=== PATIENT | male | born 1970 | race Caucasian/White ===

== ENCOUNTER 2018-02-21 22:51 | Emergency (ER) | payer OTHER ==
[~2018-02-21] VITALS: Ht 175.3 cm; Wt 79.4 kg
[~2018-02-21 22:51] MED LIST: Augmentin 875-1 EACH PO; FAMO20 PO; HYDACE5 PO; Norco 5-325 Ta1 EACH PO; Seroquel50 MG PO; Zofran Odt4 MG SL
== END 2018-02-22 00:23 | disposition home or self-care (01) ==
LOC: ER 22:51
DX: S00.412A Abrasion of left ear, initial encounter (principal); W22.8XXA Striking against or struck by other objects, initial encounter; Z88.8 Allergy status to other drugs, medicaments and biological substances; Z79.899 Other long term (current) drug therapy; F17.200 Nicotine dependence, unspecified, uncomplicated
CPT/HCPCS: 90471; 90714; 99282

== ENCOUNTER → 2021-10-09 | Outpatient (CLI) | payer OTHER ==
[2021-10-10 14:57] LABS: Creatinine Urine 47.6 mg/dL (27.00-270.00); Protein, Urine Quantitative 5.5 mg/dL (0.0-11.9)
[2021-10-10 15:00] LABS: Microalbumin, Urine Quant. 6.65 mg/L (0.000-20.000)
== END | disposition home or self-care (01) ==
LOC: LAB SHORT 05:30 → LAB FUT 10-02 11:30
PROVIDERS: Internal Medicine Nephrology
DX: N18.2 Chronic kidney disease, stage 2 (mild) (principal); D63.1 Anemia in chronic kidney disease; N25.81 Secondary hyperparathyroidism of renal origin; E55.9 Vitamin D deficiency, unspecified; E78.00 Pure hypercholesterolemia, unspecified; R76.9 Abnormal immunological finding in serum, unspecified; R94.5 Abnormal results of liver function studies; R94.6 Abnormal results of thyroid function studies
CPT/HCPCS: 81050; 82043; 82570; 84156

== ENCOUNTER 2022-06-26 13:49 | Emergency (ER) | payer OTHER ==
[~2022-06-26] VITALS: Ht 177.8 cm; Wt 79.4 kg
[2022-06-26 14:31] LABS: BASOPHILS ABSOLUTE AUTO 0.05 K/mm3 (0.00-0.23); BASOPHILS PERCENT AUTO 1 % (0-2); EOSINOPHILS ABSOLUTE AUTO 0.14 K/mm3 (0.00-0.68); EOSINOPHILS PERCENT AUTO 3 % (0-6); Hematocrit 42.7 % (37.0-53.0); Hemoglobin 15.1 g/dL (13.5-17.5); IMMATURE GRAN ABSOLUTE AUTO 0.01 K/mm3 (0.00-0.10); IMMATURE GRAN PERCENT AUTO 0 % (0-1); LYMPHOCYTES ABSOLUTE AUTO 1.19 K/mm3 (0.84-5.20); LYMPHOCYTES PERCENT AUTO 22 % (21-46); MONOCYTES ABSOLUTE AUTO 0.65 K/mm3 (0.16-1.47); MONOCYTES PERCENT AUTO 12 % (4-13); Mean Corpuscular HGB Conc 35.4 g/dL (31.5-36.5); Mean Corpuscular Volume 102 fL (80-100); Mean Platelet Volume 9.8 fL (9.1-12.4); NEUTROPHILS ABSOLUTE AUTO 3.49 K/mm3 (1.96-9.15); NEUTROPHILS PERCENT AUTO 63 % (41-73); Platelet Count 151 K/mm3 (150-400); RDW Coefficient Variation 12.7 % (11.7-14.2); RDW Standard Deviation 47.7 fL (35.1-46.3); Red Blood Cell Count 4.19 M/mm3 (4.30-5.90); White Blood Cell Count 5.53 K/mm3 (4.00-11.30)
[2022-06-26 14:57] LABS: Albumin, Blood 3.1 g/dL (3.4-5.0); Albumin/Globulin Ratio 0.7 (0.8-1.8); Bilirubin, Total 0.7 mg/dL (0.1-1.0); Calcium, Blood 8.8 mg/dL (8.5-10.1); Creatinine, Blood 0.75 mg/dL (0.60-1.20); Globulin, Blood 4.2 g/dL (2.2-4.0); Potassium, Blood 3.1 mmol/L (3.5-5.5); Total Protein, Blood 7.3 g/dL (6.4-8.2)
[2022-06-26 17:51] LABS: Magnesium, Blood 1.5 mg/dL (1.6-2.4)
== END 2022-06-26 20:20 | disposition home or self-care (01) ==
LOC: ER 13:49
PROVIDERS: Emergency Medicine; Physician Assistant
DX: K85.20 Alcohol induced acute pancreatitis without necrosis or infection (principal); F10.229 Alcohol dependence with intoxication, unspecified; Y90.8 Blood alcohol level of 240 mg/100 ml or more; E83.42 Hypomagnesemia; E87.6 Hypokalemia; I10 Essential (primary) hypertension; Z88.8 Allergy status to other drugs, medicaments and biological substances; Z79.899 Other long term (current) drug therapy; F17.200 Nicotine dependence, unspecified, uncomplicated
CPT/HCPCS: 36415; 74018; 80053; 83690; 83735; 85025; 93005; 93010; A9270; G0480; J3475; J7120

== ENCOUNTER 2022-10-02 20:59 | Inpatient (IN) | payer BC ==
[~2022-10-02] VITALS: Ht 177.8 cm; Wt 71.2 kg
[2022-10-02 22:40] LABS: Magnesium, Blood 1.7 mg/dL (1.6-2.4)
[2022-10-02 23:02] LABS: Alanine Aminotransfer (ALT/SGP 72 U/L (12-78); Albumin, Blood 2.8 g/dL (3.4-5.0); Albumin/Globulin Ratio 0.7 (0.8-1.8); Alk Phos 175 U/L (50-136); Anion Gap 15 mmol/L (6-16); Aspartate Aminotrans (AST/SGOT 183 U/L (12-37); Bilirubin, Total 2.5 mg/dL (0.1-1.0); Blood Urea Nitrogen 9 mg/dL (8-24); Bun/Creatinine Ratio 14.4 (12.0-20.0); CO2, Blood 31 mmol/L (21-32); Chloride, Blood 72 mmol/L (98-108); Creatinine, Blood 0.63 mg/dL (0.60-1.20); Globulin, Blood 4.2 g/dL (2.2-4.0); Glomerular Filtration Rate 114 (60-); Glucose, Blood 103 mg/dL (70-99); Potassium, Blood 2.7 mmol/L (3.5-5.5); Sodium, Blood 118 mmol/L (136-145)
[2022-10-02 23:41] LABS: Ethanol (Alcohol), Blood, Med <3 mg/dL
--- NOTE | 2022-10-03 02:44 | NUR ---
NO UO SINCE ARRIVAL TO ER, BLADDER SCAN SHOWED 401CC, ATTEMPTED TO STRAIGHT CATH AND ULTIMATLEY WAS SUCCESSFUL WITH A 14FR COUDE, 425CC OF DARK, TEA COLORED URINE OBTAINED, SPECIMEN SENT TO LAB ORDERED
[2022-10-03 02:54] LABS: International Normalized Ratio 1.02; Prothrombin Time Results 10.7 Sec (9.7-11.5)
[2022-10-03 03:02] LABS: EOSINOPHILS ABSOLUTE AUTO 0.01 K/mm3 (0.00-0.68); EOSINOPHILS PERCENT AUTO 0 % (0-6); Mean Corpuscular Volume 98 fL (80-100)
[2022-10-03 03:10] LABS: BASOPHILS ABSOLUTE AUTO 0.04 K/mm3 (0.00-0.23); BASOPHILS PERCENT AUTO 0 % (0-2); Hematocrit 35.7 % (37.0-53.0); IMMATURE GRAN ABSOLUTE AUTO 0.13 K/mm3 (0.00-0.10); IMMATURE GRAN PERCENT AUTO 1 % (0-1); LYMPHOCYTES ABSOLUTE AUTO 0.38 K/mm3 (0.84-5.20); LYMPHOCYTES PERCENT AUTO 3 % (21-46); MONOCYTES ABSOLUTE AUTO 0.93 K/mm3 (0.16-1.47); MONOCYTES PERCENT AUTO 8 % (4-13); NEUTROPHILS ABSOLUTE AUTO 9.58 K/mm3 (1.96-9.15); NEUTROPHILS PERCENT AUTO 87 % (41-73); NRBC ABSOLUTE 0.16 K/mm3 (0.00-0.02); NRBC Auto 1.4 /100 WBC (0.0-0.2); RDW Coefficient Variation 12.1 % (11.7-14.2); Red Blood Cell Count 3.63 M/mm3 (4.30-5.90)
[2022-10-03 03:23] LABS: Bun/Creatinine Ratio 16.7 (12.0-20.0); Creatinine, Blood 0.6 mg/dL (0.60-1.20); Potassium, Blood 2.8 mmol/L (3.5-5.5)
[2022-10-03 03:24] LABS: Mean Platelet Volume 10.6 fL (9.1-12.4)
[2022-10-03 03:29] LABS: Platelet Count 178 K/mm3 (150-400)
[2022-10-03 03:30] LABS: White Blood Cell Count 11.41 K/mm3 (4.00-11.30)
--- NOTE | 2022-10-03 06:34 | NUR ---
END OF SHIFT SUMMARY CIWA'S , RECIEVED 7MG ATIVAN TOTAL SINCE ARRIVAL TO ER, INITIALLY RETAINING URINE BUT NOW INCONTINENT AND CONDOM CATH PLACED, , NPO, SR/ST, RA, NS AT 150ML/HR INFUSING, RECIEVED THIAMINE, FOLIC ACID, MAG AND K REPLACEMENT, BED ALARM ON AND SEIZURE PRECAUTIONS IN PLACE
--- NOTE | 2022-10-03 10:34 | NUR ---
ASSUMPTION OF CARE ASSUMED CARE OF PT AT 0700, REPORT RECIEVED FROM EKTA GRAHAM. PT SLEEPING AT TIME OF ASSESSMENT AFTER RECIEVING ATIVAN PER ORDER AT AROUND 0530. PT MOANS WHEN ATTEMPTING TO WAKE PT FOR ASSESSMENT. PT NOT OPENING EYES WHEN INSTRUCTED TO. PT PULLS EXTERMITIES AWAY FROM STAFF WHEN STAFF IS MOVING HIS EXTREMITIES. PT BREATHING IS UNLABORED AND EVEN. LUNG SOUNDS CLEAR. PT HR SR/ST RANGING 90-100'S. PT HAS A RASH ON LOWER LEFT BACK THAT GOES TO PT [place]. PT HAS A COONDOM CATH IN PLACE, NO OUTPUT AT THIS TIME. FLUIDS RUNNING PER EMAR AT TIME OF ASSESSMENT.
--- NOTE | 2022-10-03 13:00 | NUR ---
UPDATE AT 1255, THIS RN WAS ALERTED BY [employer] THAT PT WAS NO LONGER COMING THROUGH ON TELE. THIS RN ENTERED PT ROOM TO FIND PT SITTING AT EDGE OF BED ON THE LEFT SIDE. THIS RN JIMBO PRIVACY CURTAIN PT WAS COMPLETELY MAXIMO THE NUDE. UPON ASSESSMENT PT HAD PULLED OFF BOTH LEFT SIDE LEADS AND WAS BEGINNING TO PULL OF SPO2 MONITOR. PT WAS INSTRUCTED NOT TO PULL OFF O2 SENSOR AND INFORMED IT WAS FOR ALLOWING STAFF TO GET HIS VITALS. PT RESPONDED "OK." PT ALERT TO SELF AT THIS TIME. PT REMAINED SILENT WHEN ASKED FOR NAME AND . WHEN ASKED IF HE KNOWS WHERE HE IS AT, PT RESPONDED "[facility]." PT INFORMED THAT HE IS AT [facility] IN [facility], PT RESPONDED "OH I AM?" PT UNABLE TO RECALL WHEN OR WHY HE CAME TO THE HOSPITAL AT THIS TIME. PT WAS INFORMED THAT HE HAS BEEN VERY WEAK AND THAT HE NEEDS TO REMAIN IN HIS BED UNTIL HE REGAINS SOME OF HIS STRENGTH AND IS MORE ALERT. PT RESPONDED "OK I CAN JUST GO BACK TO BED THEN." THIS RN ASKED IF PT WAS HAVING ANY PAIN, PT RESPONDED "NO." NO REPORT OF HEADACHE EITHER AT THIS TIME. PT ASSISTED TO SUPINE POSITION IN BED AND BED ALARM IN PLACE. CHAUFFEUR ENTERED ROOM FOR BLOOD DRAW, PT TOLD CHAUFFEUR "NOT RIGHT NOW" WHEN TOLD THAT SHE NEEDED TO DRAW SOME BLOOD. THIS RN INSTRUCTED PT THAT HIS BLOOD NEEDS TO BE DRAWN TO CHECK HIS ELECTROLYTE LEVELS, PT ALLOWED THIS RN TO HOLD ARM DURING BLOOD DRAW.
[2022-10-03 13:33] LABS: Bun/Creatinine Ratio 13.8 (12.0-20.0); Calcium, Blood 8.1 mg/dL (8.5-10.1); Creatinine, Blood 0.58 mg/dL (0.60-1.20); Magnesium, Blood 2.2 mg/dL (1.6-2.4); Potassium, Blood 2.9 mmol/L (3.5-5.5)
--- NOTE | 2022-10-03 15:42 | NUR ---
LEFT MESSAGE FOR DR MUNGUIA THAT PT LABS HAVE COME BACK AND THAT POTASSIUM LEVELS ARE STILL LOW.
--- NOTE | 2022-10-03 15:48 | NUR ---
DR CALLED BACK AT, UIPDATED ON PT POTASSIUM AND SODIUM LEVELS BEING LOW. 20MEQ IV POT CHL Q2 X3 DOSES TO BE ORDERED.
--- NOTE | 2022-10-03 17:06 | NUR ---
SHIFT SUMMARY PT SLEPT FOR MOST OF SHIFT, HAD BRIEF PERIODS OF PT SITTING UP TO EDGE OF BED. PT RESPONDS BY MOANING AND MUMBLING WHEN ATTEMPTING TO WAKE PT UP FOR ASSESSMENTS. WHEN PT WAS AWAKE AND SITTING UP AT EDGE OF BED, PT ORIENTED TO SELF. PT BELIEVED HE WEAS IN [facility] WHEN ASKED IF HE KNOWS WHERE HE IS. PT COOPERATIVE OF CARE AFTER EXPLANATION OF CARE. PT WAS NOTICED PULLING AT CONDOM CATH, INSTRUCTED PT TO NOT PULL AT CATH AND INFORMED PT WHY HE HAD A CONDOM CATH IN PLACE, PT COOPERATIVE AND STOPPED PULLING. CIWA SCORED PRN, SEE CHART FOR SCORES. VSS THROUGHOUT SHIFT WITH 02 SATS IN THE 90'S ON RA. NO REPORT OF CHEST PAIN/PRESSURE WHEN AWAKE. NO PAIN REPORTED. NO SOB REPORTED WHEN AWAKE. PT ABLE TO TURN SELF IN BED. PT PULLS AWAY FROM STAFF WHEN PROVIDING CARE.
[2022-10-04 05:28] LABS: BASOPHILS ABSOLUTE AUTO 0.03 K/mm3 (0.00-0.23); BASOPHILS PERCENT AUTO 0 % (0-2); EOSINOPHILS ABSOLUTE AUTO 0.06 K/mm3 (0.00-0.68); EOSINOPHILS PERCENT AUTO 1 % (0-6); Hematocrit 32.5 % (37.0-53.0); Hemoglobin 11.9 g/dL (13.5-17.5); IMMATURE GRAN ABSOLUTE AUTO 0.06 K/mm3 (0.00-0.10); IMMATURE GRAN PERCENT AUTO 1 % (0-1); LYMPHOCYTES ABSOLUTE AUTO 0.95 K/mm3 (0.84-5.20); LYMPHOCYTES PERCENT AUTO 9 % (21-46); MONOCYTES ABSOLUTE AUTO 1.09 K/mm3 (0.16-1.47); MONOCYTES PERCENT AUTO 11 % (4-13); Mean Corpuscular HGB 37.4 pg (26.0-34.0); Mean Corpuscular HGB Conc 36.6 g/dL (31.5-36.5); Mean Corpuscular Volume 102 fL (80-100); Mean Platelet Volume 9.7 fL (9.1-12.4); NEUTROPHILS ABSOLUTE AUTO 7.88 K/mm3 (1.96-9.15); NEUTROPHILS PERCENT AUTO 78 % (41-73); Platelet Count 146 K/mm3 (150-400); RDW Coefficient Variation 12.2 % (11.7-14.2); RDW Standard Deviation 46.2 fL (35.1-46.3); Red Blood Cell Count 3.18 M/mm3 (4.30-5.90); White Blood Cell Count 10.07 K/mm3 (4.00-11.30)
[2022-10-04 06:08] LABS: Albumin/Globulin Ratio 0.6 (0.8-1.8); Bilirubin, Total 1.4 mg/dL (0.1-1.0); Bun/Creatinine Ratio 12.5 (12.0-20.0); Calcium, Blood 7.8 mg/dL (8.5-10.1); Creatinine, Blood 0.56 mg/dL (0.60-1.20); Globulin, Blood 3.4 g/dL (2.2-4.0); Potassium, Blood 3.7 mmol/L (3.5-5.5); Total Protein, Blood 5.4 g/dL (6.4-8.2)
--- NOTE | 2022-10-04 06:29 | NUR ---
SHIFT SUMMARY PATIENT LETHARGIC BUT WAKES EASILY TO VERBAL STIMULI, ORIENTED x2-3. VSS, PATIENT ON RA WITH 02 SAT >90%. CIWAs MAX 9 T/O NIGHT, MEDICATED PER EMAR FOR WITHDRAWL SYMPTOMS. DENIES NAUSEA BUT WILL WAKE WITH MODERATE AMOUNTS OF SPUTUM, SUCTION AT BEDSIDE. CONDOM CATH IN PLACE WITH ADEQUATE OUTPUT DURING THE NIGHT. PATIENT MOVES SELF IN BED INDEPENDENTLY. NO OTHER CHANGES. WILL REPORT TO DAY SHIFT RN.
--- NOTE | 2022-10-04 16:37 | NUR ---
UPDATE AT 1625 PT SET OFF HIS BED ALARM BY STANDING UP. THIS RN ENTERED PT ROOM TO FIND PT COMPLOETELY IN THE NUDE STANDING AT THE EDGE OF HIS BED. THIS RN JIMBO THE PRIVACY CURTAIN AND ASKED THE PT IF HE NEEDED TO USE THE RESTROOM. PT RESPONDED "NO. I NEED MY STUFF SO I CAN GET THE FUCK OUT OF HERE. I WAS DIAGNOSED WITH PANCREATITIS BUT I'M NOT BEING TREATED FOR IT. YOUR KEEPING ME HERE FOR ALCOHOL." THIS RN INFORMED PT THAT HE WAS ADMITTED FOR ACUTE PANCREATITS AND THAT HE HAS NOT ENDORSED ANY ABDOMINAL PAIN. PT RESPONDED "WHERE IS MY STUFF?" HE ENTERED THE RESTROOM. THIS RN INFORMED PT THAT HIS BELONGINGS WERE TAKEN HOME BY HIS FIANCEE. PT AGAIN STATED THAT HE IS GOING HOME AND ASKED THIS RN TO CALL HIS FIANCEE TO BRING HIM SOME CLOTHES. THIS RN CONTACTED DR AT 1629 AND UPD[address] HIM. DR INSTRUCTED THIS RN TO CALL MAGEN AND SEE IF SHE CAN TALK PT INTO STAYING, BUT IF SHE CAN NOT CONVINCE HIM TO STAY PT WOULD HAVE TO LEAVE AGAINST MEDICAL ADVICE. THIS RN CALLED PT MAGEN AT 1635 AND INFORMED HER OF THE INCIDENT. PT STATED THAT SHE WILL "HEAD BACK TO THE HOUSE TO GET SOME CLOTHES IF I CAN'T GET HIM TO STAY." THIS RN THEN WENT TO PT TO INFORM HIM THAT HE HAS NOT FULLY STARTED HIS ETOH WITHDRAWALS AND THAT HE COULD BEGIN AT ANY TIME. PT RESPONDED "I HAVE BEEN WEENING OFF OF ALCOHOL FOR A COUPLE OF WEEKS. I WILL BE FINE."
--- NOTE | 2022-10-04 17:17 | NUR ---
PT MAGEN ARRIVED AT 1710. MAGEN UPDATED AGAIN OF CONVERSATIONS WITH PT. PT AND THIS RN ENTERED PT ROOM TOGETHER TO DISCUSS THE IMPORTANCE OF THE PT STAYING AND WHAT CARE HAS BEEN PROVIDED SINCE PT WAS ADMITTED. THIS RN STRESSED THE IMPORTANCE OF PT STAYING AND THAT ULTIMATELY WE CAN'T FORCE HIM TO STAY. PT INFORMED THAT IF HE WAS TO LEAVE THAT IT WOULD BE AGAINST MEDICAL ADVICE AND THAT FURTHER TREATMENT LIKE PAIN MEDS, ALCOHOHOL WITHDRAWAL TREATEMENT/MEDS AND ANTIBIOTICS WOULD NOT BE AVAILABLE. THIS RN ASKED IF PT AND MAGEN WANTED TO DISCUSS IT, PT MAGEN SAID "YES PLEASE."
--- NOTE | 2022-10-04 17:42 | NUR ---
DINNER TRAYS ARRIVED TO THE FLOOR ABOUT 1730. THIS RN ENTERED PT ROOM TO SEE IF HE WOULD LIKE HIS DINNER TRAY, PT LAYING IN THE BED ON HIS LEFT SIDE AND APPEARED TO BE SLEEPING. PT MAGEN STATED "WE DIDN'T TALK TOO MUCH" REFERRING TO PT WANTING TO LEAVE AMA. THIS RN ASKED PT IF HE WANTED TO HAVE HIS DINNER TRAY OR FOR US TO HOLD IT SO HE COULD REST. PT RESPONDED "NO, I'M HUNGRY." PT DINNER TRAY BROUGHT IN BY ASHANTI.
--- NOTE | 2022-10-04 18:01 | NUR ---
SHIFT SUMMARY PT A/OX 3-4, UNSURE OF DATE OR HOW LONG HE HAS BEEN AT HOSPITAL. ANSWERS ALL OTHER ORIENTATION QUESTIONS APPROPIATELY. PT VSS THROUGHOUT SHIFT WITH 02 SATS IN THE 90'S ON RA. NO REPORT OF CHEST PAIN/PRESSURE THROUGHOUT SHIFT. NO REPORT OF SOB/DYSPNEA THROUGHOUT SHIFT. PT SLEPT FOR ROUGHLY HALF OF SHIFT. CIWA'S RANGED 8-10, TREATED PER EMAR. PT BECAME RESTLESS TOWARDS END OF SHIFT AND WANTED TO LEAVE, SEE PREVIOUS NOTES. PT REMOVED TELE DURING THIS, NOTIFIED AND STATED TO KEEP THE TELE ORDER BUT THAT THE PT CAN BE OFF OF TELE UNLESS HE RECIEVES ANY ANTI-EMETICS DUE TO HIS PREVIOUS QTC INTERVAL, NURSE NOTIFICATION PLACED IN ORDERS. C0NDOM CATH REMOVED BY PT.
[2022-10-05 04:01] LABS: BASOPHILS ABSOLUTE AUTO 0.05 K/mm3 (0.00-0.23); BASOPHILS PERCENT AUTO 1 % (0-2); EOSINOPHILS ABSOLUTE AUTO 0.11 K/mm3 (0.00-0.68); EOSINOPHILS PERCENT AUTO 1 % (0-6); Hematocrit 34.2 % (37.0-53.0); Hemoglobin 12.4 g/dL (13.5-17.5); IMMATURE GRAN ABSOLUTE AUTO 0.08 K/mm3 (0.00-0.10); IMMATURE GRAN PERCENT AUTO 1 % (0-1); LYMPHOCYTES ABSOLUTE AUTO 1.09 K/mm3 (0.84-5.20); LYMPHOCYTES PERCENT AUTO 11 % (21-46); MONOCYTES PERCENT AUTO 17 % (4-13); Mean Corpuscular HGB 37.2 pg (26.0-34.0); Mean Corpuscular HGB Conc 36.3 g/dL (31.5-36.5); Mean Corpuscular Volume 103 fL (80-100); Mean Platelet Volume 10.5 fL (9.1-12.4); NEUTROPHILS ABSOLUTE AUTO 7.24 K/mm3 (1.96-9.15); NEUTROPHILS PERCENT AUTO 70 % (41-73); Platelet Count 172 K/mm3 (150-400); RDW Coefficient Variation 12.3 % (11.7-14.2); RDW Standard Deviation 46.3 fL (35.1-46.3); Red Blood Cell Count 3.33 M/mm3 (4.30-5.90); White Blood Cell Count 10.27 K/mm3 (4.00-11.30)
[2022-10-05 04:22] LABS: Albumin, Blood 2.1 g/dL (3.4-5.0); Albumin/Globulin Ratio 0.6 (0.8-1.8); Bilirubin, Total 1.2 mg/dL (0.1-1.0); Bun/Creatinine Ratio 13.2 (12.0-20.0); Calcium, Blood 8.3 mg/dL (8.5-10.1); Creatinine, Blood 0.61 mg/dL (0.60-1.20); Globulin, Blood 3.7 g/dL (2.2-4.0); Magnesium, Blood 1.8 mg/dL (1.6-2.4); Potassium, Blood 3.4 mmol/L (3.5-5.5); Total Protein, Blood 5.8 g/dL (6.4-8.2)
--- NOTE | 2022-10-05 06:17 | NUR ---
SHIFT SUMMARY PATIENT ALERT, ORIENTED x2-3. VSS, PATIENT ON RA DURING THE NIGHT WITH O2 SAT >90%. MEDICATED PER EMAR FOR WITHDRAWL SYMPTOMS. PATIENT ABLE TO GET PLENTY OF REST THIS SHIFT. AMBULATED INTO BATHROOM STANDBY ASSIST, WITH ADEQUATE OUTPUT. TOLERATING PO. CALLED NIGHT HOSPITALIST REGARDING PATIENT SODIUM LEVEL TRENDING DOWN. NO NEW ORDERS DURING THE NIGHT. NO OTHER CHANGES THIS SHIFT, WILL REPORT TO DAY SHIFT RN.
--- NOTE | 2022-10-05 08:16 | NUR ---
AM NOTE: PATIENT ALERT AND ORIENTED X3. UNABLE TO TELL ME DATE. DENIES N/T. PERRLA. EQUAL STRENGTH IN UPPER AND LOWER EXTREMITIES. SLIGHTLY WEAK. SBA TO BATHROOM. DENIES OVERALL PAIN. NOT WEARING TELE AT THIS TIME, SEE NURSE NOTIFY ORDERS ABOUT TELE. HR 90'S. BP STABLE DENIES CHEST PAIN/PRESSURE/PALPITATIONS. NO SIGNS OF EDEMA. PPP. ON ROOM AIR SATING 99%, UPPER LOBES SOUNDING COARSE AND DIM IN BASES. OCCASIONAL MOIST SOUNDING COUGH. SUCTION AT BEDSIDE. PATIENT EATING SMALL AMOUNT OF BREAKFAST AND DRINKING WNL. DENIES ABDOMINAL PAIN/NAUSEA. UP TO BATHROOM WITH NURSE ASSIST. BED ALARM IN PLACE. IV THIAMINE AND FOLIC ACID INFUSED THIS AM. CIWA SCORING 5. PATIENT STATES "I JUST WANT TO SLEEP". CALL LIGHT IN REACH. PATIENT SLEEPING AT THIS TIME.
--- NOTE | 2022-10-05 16:34 | NUR ---
PATIENT REQUESTING NICOTINE PATCH, SMOKES 2 PACKS PER DAY. CALL PLACED TO DR. MUNGUIA. NEW ORDERS FOR 21 MG NICOTINE PATCH DAILY. AT BEDSIDE. PATIENT REQUESTING ICE CREAM. EATING ICE CREAM AND WATCHING SUPERBOWL. DENIES NEEDS AT THIS TIME.
--- NOTE | 2022-10-05 17:33 | NUR ---
SHIFT SUMMARY: NO ACUTE CHANGES. PATIENT REMAINS SLEEPY THROUGHOUT SHIFT. MEDICATED X1 WITH LIBRIUM FOR CIWA SCORE OF 9. CIWAS RANGING FROM 2-9. TELE REMAINS OFF, NO ANTIEMETIC MEDICATIONS GIVEN. REMAINS ON ROOM AIR. COMPLAINS OF BACK SORENESS BUT STATES IT IS FROM LAYING IN BED. SEE PREVIOUS NOTES FOR UPDATES. AT BEDSIDE AND UPDATED ON PLAN OF CARE. WILL CONTINUE TO MONITOR AND REPORT OFF TO ONCOMING RN.
[2022-10-06 03:38] LABS: BASOPHILS ABSOLUTE AUTO 0.06 K/mm3 (0.00-0.23); BASOPHILS PERCENT AUTO 1 % (0-2); EOSINOPHILS ABSOLUTE AUTO 0.11 K/mm3 (0.00-0.68); EOSINOPHILS PERCENT AUTO 1 % (0-6); Hemoglobin 12.3 g/dL (13.5-17.5); IMMATURE GRAN ABSOLUTE AUTO 0.09 K/mm3 (0.00-0.10); IMMATURE GRAN PERCENT AUTO 1 % (0-1); LYMPHOCYTES ABSOLUTE AUTO 1.07 K/mm3 (0.84-5.20); LYMPHOCYTES PERCENT AUTO 11 % (21-46); MONOCYTES ABSOLUTE AUTO 1.75 K/mm3 (0.16-1.47); MONOCYTES PERCENT AUTO 18 % (4-13); Mean Corpuscular HGB Conc 36.2 g/dL (31.5-36.5); Mean Corpuscular Volume 102 fL (80-100); Mean Platelet Volume 9.8 fL (9.1-12.4); NEUTROPHILS ABSOLUTE AUTO 6.68 K/mm3 (1.96-9.15); NEUTROPHILS PERCENT AUTO 69 % (41-73); Platelet Count 198 K/mm3 (150-400); RDW Coefficient Variation 12.5 % (11.7-14.2); RDW Standard Deviation 46.8 fL (35.1-46.3); Red Blood Cell Count 3.32 M/mm3 (4.30-5.90); White Blood Cell Count 9.76 K/mm3 (4.00-11.30)
[2022-10-06 04:07] LABS: Albumin/Globulin Ratio 0.6 (0.8-1.8); Bilirubin, Total 0.9 mg/dL (0.1-1.0); Bun/Creatinine Ratio 9.5 (12.0-20.0); Calcium, Blood 8.4 mg/dL (8.5-10.1); Creatinine, Blood 0.63 mg/dL (0.60-1.20); Globulin, Blood 3.5 g/dL (2.2-4.0); Magnesium, Blood 1.6 mg/dL (1.6-2.4); Potassium, Blood 3.9 mmol/L (3.5-5.5); Total Protein, Blood 5.5 g/dL (6.4-8.2)
--- NOTE | 2022-10-06 07:08 | NUR ---
PT ALERT NO S/S OF ACUTE DISTRESS, SAFETY MEASURES IN PLACE. REPORT GIVEN ON COMING NURSE.
[2022-10-06] MEDS ORDERED: LOSA25 PO (13:07)
--- NOTE | 2022-10-06 15:45 | NUR ---
VESSEL MANAGER NOTE WITH PRECEPTOR RN, ASSUMED CARE OF PT AT APPROXIMATELY 0710. NO ACUTE CHANGES THROUGHOUT SHIFT. PT A/O X4, PT WAS SLEEPY THROUGHOUT SHIFT AND WITHDRAWN. PT WEARING OWN CLOTHES. INTACT BLISTER NOTED ON RIGHT HAND/THUMB. BILATERAL FEET AND TOES COVERED IN THICK, DRY, SCALY CALLOUSES. PT DENIED NAUSEA AND TOLERATED REGULAR DIET WELL. ABD FIRM WITH HYPERACTIVE BOWEL TONES. LUNG SOUNDS CLEAR, DIMINISHED AT BASES. NO EDEMA NOTED. STANDBY ASSIST TO THE BATHROOM. PT DID NOT CALL FOR ASSISTANCE AND SET OFF BED ALARM MULTIPLE TIMES. PT SCORED AM CIWA 5 AND NOON 3. DID NOT MEDICATE PER EMR. PT DENIED PAIN THROUGHOUT SHIFT. PT WAS TRANSFERRED TO MEDICAL UNIT.
--- NOTE | 2022-10-06 17:26 | NUR ---
PATIENT DOWNGRADE FROM PCU 10. PT ALERT AND ORIENTED, ON ROOM AIR, SBA IN ROOM. TELE DISCONTINUED ON TRANSFER.
--- NOTE | 2022-10-07 03:11 | NUR ---
SUMMARY: PT A/OX4, CALLS APPROPRIATELY TO SPECIFY NEEDS AND IS SBA TO TOILET. BED ALARM REMAINS ON FOR MILD IMPULSIVITY AND FALL RISK R/T UNSTEADY GAIT. CIWAS REMAIN 0, NO PRN MEDS REQUIRED. IV IS SL'D. NO ACUTE CHANGES, VSS AND AFEBRILE. WCTM AND REPORT TO DAY RN.
--- NOTE | 2022-10-07 17:49 | NUR ---
SHIFT SUMMARY NO ACUTE CHANGES DURING SHIFT. PT ALERT AND ORIENTED, CALLS APPROPRIATELY. PT REMAINS ON RA, SBA TO BATHROOM. CIWA SCORE CONTINUES TO BE 0-1. PLANS FOR POSSIBLE D/C TOMORROW. WILL CONTINUE TO MONITOR. CALL LIGHT WITHIN REACH.
--- NOTE | 2022-10-08 05:06 | NUR ---
SHIFT SUMMARY PATIENT HAD NO ACUTE CHANGES. AXOX 3 AND SBA TO BR. CALLS APPROPRIATELY. ON ROOM AIR. CIWA SCORE ZERO. DENIES PAIN, SOB, AND N/V. VSS/AFEBRILE. PIV REMAINS INTACT. CALL LIGHT IN REACH. BED IN LOWEST POSITION. WILL CONTINUE TO MONITOR UNTIL DAY SHIFT NURSE ASSUMES CARE.
--- NOTE | 2022-10-08 08:00 | NUR ---
PT PLEASANT COOP A/O X3. DENIES PAIN AT THIS TIME. H/R REG, NO MURMUR NOTED. NO TELE . LUNGS CLEAR, RESP EASY, UNLABORED. ON R.A. BT X4 LAST BM UNKNOWN. VOIDS BATHROOM. SBA. PT STATES NOT DRINKING FOR ABOUT A WEEK. FEELS GETTING BETTER. STATES DID NOT HAVE DT'S. STATES HE WAS PRETTY SHAKEY, BUT THATS ALL. DENIES HALLUCINATIONS. 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 HOPING TO GO HOME TODAY OR TOMORROW. BED IN LOW POSITION, CALL LITE IN REACH, CALLS APPROP
--- NOTE | 2022-10-08 11:49 | NUR ---
CALLED DR MUNGUIA. HE OKAYED MOVE THIAMINE AND FOLIC ACID TO PO.
[2022-10-08 13:00] LABS: BASOPHILS ABSOLUTE AUTO 0.08 K/mm3 (0.00-0.23); BASOPHILS PERCENT AUTO 1 % (0-2); EOSINOPHILS ABSOLUTE AUTO 0.12 K/mm3 (0.00-0.68); EOSINOPHILS PERCENT AUTO 1 % (0-6); Hematocrit 39.4 % (37.0-53.0); Hemoglobin 13.6 g/dL (13.5-17.5); IMMATURE GRAN ABSOLUTE AUTO 0.05 K/mm3 (0.00-0.10); IMMATURE GRAN PERCENT AUTO 1 % (0-1); LYMPHOCYTES ABSOLUTE AUTO 1.29 K/mm3 (0.84-5.20); LYMPHOCYTES PERCENT AUTO 14 % (21-46); MONOCYTES ABSOLUTE AUTO 1.29 K/mm3 (0.16-1.47); MONOCYTES PERCENT AUTO 14 % (4-13); Mean Corpuscular HGB 37.1 pg (26.0-34.0); Mean Corpuscular HGB Conc 34.5 g/dL (31.5-36.5); Mean Platelet Volume 10.3 fL (9.1-12.4); NEUTROPHILS PERCENT AUTO 69 % (41-73); Platelet Count 287 K/mm3 (150-400); RDW Coefficient Variation 13.4 % (11.7-14.2); Red Blood Cell Count 3.67 M/mm3 (4.30-5.90); White Blood Cell Count 9.23 K/mm3 (4.00-11.30)
[2022-10-08 13:06] LABS: Albumin, Blood 2.3 g/dL (3.4-5.0); Albumin/Globulin Ratio 0.5 (0.8-1.8); Bilirubin, Total 0.6 mg/dL (0.1-1.0); Bun/Creatinine Ratio 13.6 (12.0-20.0); Calcium, Blood 8.8 mg/dL (8.5-10.1); Creatinine, Blood 0.66 mg/dL (0.60-1.20); Globulin, Blood 4.2 g/dL (2.2-4.0); Magnesium, Blood 2.1 mg/dL (1.6-2.4); Potassium, Blood 4.2 mmol/L (3.5-5.5); Total Protein, Blood 6.5 g/dL (6.4-8.2)
[2022-10-08 17:33] LABS: Mean Corpuscular Volume 107 fL (80-100)
--- NOTE | 2022-10-08 18:34 | NUR ---
PT PLEASANT TODAY. DISCUSSED HIS ETOH USE. DISCUSSED HIS POSSIBLE WORK WITH COUSIN WHO WAS IN THIS AFT. HOPEFUL FOR WORK THIS WEEK. DR GAVE CHOICE TO GO HOME TONITE OR TOMORROW AM. PT AGREED TO GO HOME TOMORROW AM. CHANGED IV THIAMINE AND FOLIC ACID TO PO PER DR MUNGUIA. DID GIVE 1 L BOLUS TODAY FOR SOFT B/P. NO OTHER CONCERNS NOTED BED IN LOW POSITION, CALL LITE IN REACH, CALLS APPROP
--- NOTE | 2022-10-09 04:00 | NUR ---
SHIFT SUMMARY 52 YR M ADMITTED ON 10/03/22 FOR PANCREATITIS. FULL CODE. NO ACUTE CHANGES THIS SHIFT. PT IS PLEASANT AND COOPERATIVE AND LOOKING FORWARD TO GOING HOME THIS A.M. HE HAS SLEPT FOR MOST OF THIS SHIFT, SO NOTHING NEW TO REPORT.
[2022-10-09 07:18] LABS: Magnesium, Blood 1.7 mg/dL (1.6-2.4)
--- NOTE | 2022-10-09 14:20 | NUR ---
PATIENT DISCHARGED TO HOME WITH FIJONATHAN. IV WAS REMOVED, FOLLOW UP APPOINTMENTS WERE REVIEWD, PATEINT WAS GIVEN EDUCATION AND ALL BELONGINGS WERE RETURNED. PATIENT WAS WHEELED OUT BY [facility] MEDICAL STAFF, WHERE HIS RIDE WAS WAITING.
[2022-10-09 17:08] LABS: Potassium, Blood 4.5 mmol/L (3.5-5.5)
[2022-10-09 17:09] LABS: Albumin/Globulin Ratio 0.6 (0.8-1.8); Bilirubin, Total 0.5 mg/dL (0.1-1.0); Bun/Creatinine Ratio 11.3 (12.0-20.0); Calcium, Blood 8.4 mg/dL (8.5-10.1); Creatinine, Blood 0.71 mg/dL (0.60-1.20); Globulin, Blood 3.6 g/dL (2.2-4.0); Total Protein, Blood 5.6 g/dL (6.4-8.2)
== END 2022-10-09 14:12 | disposition home or self-care (01) | DRG 439 ==
LOC: ER 20:59 → PCU 10-03 00:37 → MEDS 10-06 15:44
PROVIDERS: Student in an Organized Health Care Education/Training Program; ADMIT Internal Medicine
DX: K85.20 Alcohol induced acute pancreatitis without necrosis or infection (principal); E87.1 Hypo-osmolality and hyponatremia; F10.239 Alcohol dependence with withdrawal, unspecified; R94.5 Abnormal results of liver function studies; E87.6 Hypokalemia; K76.0 Fatty (change of) liver, not elsewhere classified; I10 Essential (primary) hypertension; F10.229 Alcohol dependence with intoxication, unspecified; F17.210 Nicotine dependence, cigarettes, uncomplicated; R94.31 Abnormal electrocardiogram [ECG] [EKG]; Z79.899 Other long term (current) drug therapy; Z88.8 Allergy status to other drugs, medicaments and biological substances; Z71.41 Alcohol abuse counseling and surveillance of alcoholic
CPT/HCPCS: 36415; 74177; 80048; 80053; 83690; 83735; 83930; 83935; 84300; 84484; 85025; 85610; 93005; 93010; 96361; 96374-59; 96375; 99285-25; A9270; G0480; J0696; J2060; J2405; J3010; J3411; J3475; J3480; J7030; Q9967

== ENCOUNTER → 2022-10-21 | Outpatient (CLI) | payer BC ==
[~2022-10-21] MED LIST changes: +LOSA25 PO
[2022-10-25 13:59] LABS: Stool Occult Bld Immuno 1 Positive (NEGATIVE)
== END | disposition home or self-care (01) ==
LOC: LAB 18:17 → LAB SHORT 18:17 → LAB FUT 10-21 11:30
PROVIDERS: Internal Medicine Nephrology
DX: N18.2 Chronic kidney disease, stage 2 (mild) (principal); D63.1 Anemia in chronic kidney disease; N25.81 Secondary hyperparathyroidism of renal origin; E55.9 Vitamin D deficiency, unspecified; E78.00 Pure hypercholesterolemia, unspecified; R76.9 Abnormal immunological finding in serum, unspecified; R94.5 Abnormal results of liver function studies; R94.6 Abnormal results of thyroid function studies
CPT/HCPCS: G0328

== ENCOUNTER 2023-01-19 21:13 | Inpatient (IN) | payer BC ==
[~2023-01-19] VITALS: Ht 177.8 cm; Wt 77.1 kg
[2023-01-19 21:59] LABS: BASOPHILS ABSOLUTE AUTO 0.05 K/mm3 (0.00-0.23); BASOPHILS PERCENT AUTO 0 % (0-2); EOSINOPHILS PERCENT AUTO 0 % (0-6); Hematocrit 49.1 % (37.0-53.0); Hemoglobin 18.3 g/dL (13.5-17.5); IMMATURE GRAN ABSOLUTE AUTO 0.15 K/mm3 (0.00-0.10); IMMATURE GRAN PERCENT AUTO 1 % (0-1); LYMPHOCYTES ABSOLUTE AUTO 1.19 K/mm3 (0.84-5.20); LYMPHOCYTES PERCENT AUTO 7 % (21-46); MONOCYTES PERCENT AUTO 14 % (4-13); Mean Corpuscular HGB 35.7 pg (26.0-34.0); Mean Corpuscular HGB Conc 37.3 g/dL (31.5-36.5); Mean Corpuscular Volume 96 fL (80-100); Mean Platelet Volume 9.8 fL (9.1-12.4); NEUTROPHILS ABSOLUTE AUTO 13.53 K/mm3 (1.96-9.15); NEUTROPHILS PERCENT AUTO 78 % (41-73); Platelet Count 358 K/mm3 (150-400); RDW Coefficient Variation 13.8 % (11.7-14.2); RDW Standard Deviation 49.1 fL (35.1-46.3); Red Blood Cell Count 5.13 M/mm3 (4.30-5.90); White Blood Cell Count 17.32 K/mm3 (4.00-11.30)
[2023-01-19 22:19] LABS: Ethanol (Alcohol), Blood, Med <3 mg/dL
[2023-01-19 22:24] LABS: Alanine Aminotransfer (ALT/SGP 39 U/L (12-78); Albumin, Blood 3.4 g/dL (3.4-5.0); Albumin/Globulin Ratio 0.8 (0.8-1.8); Alk Phos 231 U/L (50-136); Anion Gap 15 mmol/L (6-16); Aspartate Aminotrans (AST/SGOT 103 U/L (12-37); Bilirubin, Total 1.3 mg/dL (0.1-1.0); Blood Urea Nitrogen 12 mg/dL (8-24); Bun/Creatinine Ratio 14.1 (12.0-20.0); CO2, Blood 30 mmol/L (21-32); Calcium, Blood 9.6 mg/dL (8.5-10.1); Chloride, Blood 87 mmol/L (98-108); Creatinine, Blood 0.85 mg/dL (0.60-1.20); Globulin, Blood 4.2 g/dL (2.2-4.0); Glomerular Filtration Rate 104 (60-); Glucose, Blood 197 mg/dL (70-99); Potassium, Blood 2.8 mmol/L (3.5-5.5); Sodium, Blood 132 mmol/L (136-145); Total Protein, Blood 7.6 g/dL (6.4-8.2)
[2023-01-20] VITALS (7 sets, daily range): BP systolic 138–174; BP diastolic 103–118
[2023-01-20 04:56] LABS: BASOPHILS ABSOLUTE AUTO 0.05 K/mm3 (0.00-0.23); BASOPHILS PERCENT AUTO 0 % (0-2); EOSINOPHILS PERCENT AUTO 0 % (0-6); Hematocrit 46.9 % (37.0-53.0); IMMATURE GRAN PERCENT AUTO 1 % (0-1); LYMPHOCYTES ABSOLUTE AUTO 1.06 K/mm3 (0.84-5.20); LYMPHOCYTES PERCENT AUTO 7 % (21-46); MONOCYTES ABSOLUTE AUTO 1.73 K/mm3 (0.16-1.47); MONOCYTES PERCENT AUTO 11 % (4-13); Mean Corpuscular HGB Conc 36.2 g/dL (31.5-36.5); Mean Corpuscular Volume 97 fL (80-100); Mean Platelet Volume 10.1 fL (9.1-12.4); NEUTROPHILS ABSOLUTE AUTO 12.98 K/mm3 (1.96-9.15); NEUTROPHILS PERCENT AUTO 82 % (41-73); Platelet Count 238 K/mm3 (150-400); RDW Coefficient Variation 13.9 % (11.7-14.2); RDW Standard Deviation 49.4 fL (35.1-46.3); Red Blood Cell Count 4.86 M/mm3 (4.30-5.90); White Blood Cell Count 15.92 K/mm3 (4.00-11.30)
[2023-01-20 05:14] LABS: Albumin, Blood 2.9 g/dL (3.4-5.0); Albumin/Globulin Ratio 0.8 (0.8-1.8); Bilirubin, Total 1.3 mg/dL (0.1-1.0); Bun/Creatinine Ratio 16.4 (12.0-20.0); Calcium, Blood 8.6 mg/dL (8.5-10.1); Creatinine, Blood 0.79 mg/dL (0.60-1.20); Globulin, Blood 3.7 g/dL (2.2-4.0); International Normalized Ratio 0.99; Potassium, Blood 3.3 mmol/L (3.5-5.5); Prothrombin Time Results 10.4 Sec (9.7-11.5); Total Protein, Blood 6.6 g/dL (6.4-8.2)
--- NOTE | 2023-01-20 06:56 | NUR ---
Shift Summary Pt admitted from ED with dx of pancreatitis. Pt had low potassium and was given IV potassium and IV thiamine as ordered. Hx of heavy, daily ETOH use, PRN CIWA active. Last CIWA score was 3. Medicated per EMAR for severe abd pain. Pt hypertensive, hospitalist ordered hydralazine PRN for HTN. Pt tachycardic around 120. AOx4, independent in room.
--- NOTE | 2023-01-20 10:34 | NUR ---
AM ASSESSMENT I WAS PRESENT DURING AND AGREE WIT THE STUDENT IAIN REA'S AM ASSESSMENT AN DOCUMENTATION OF THIS PATIENT
--- NOTE | 2023-01-20 16:25 | NUR ---
"AI" WAS A&O X4 TODAY, PLEASANT AND COOPERATIVE WITH CARE. HE CONTINUES TO COMPLAIN OF PAIN UP TO 8 OUT OF 10, MEDICATED PER EMAR. HE REMAINED IN BED ALL DAY TODAY AND STAYED NPO EXCEPT FOR ICE WATER (PER PT REQUEST). DR LIAO VISITED THE PATIENT TODAY APPROXIMATELY 1400 AND PLACED ADDITIONAL MEDICATION ORDERS INCLUDING CREAM FOR GROIN RASH, PROTONIX, AND NICOTINE PATCH.
--- NOTE | 2023-01-20 16:41 | NUR ---
PT IS A/OX3, PLEASANT AND COOPERATIVE. THE PT IS UP IND IN HIS ROOM. THE PT HAS BEEN MEDICATED FOR ABD PAIN T/O THE DAY. PT DENIED N/V TODAY. PT HAS BEEN TAKING SMALL SIPS OF ICE WATER TODAY. IV FLUIDS RUNNING. LOW CWAW. CALL LIGHT IN REACH, WILL CONTINUE TO MONITOR AND ASSESS FOR CHANGES
[2023-01-21 03:37] VITALS: BP 114/86
[2023-01-21 05:29] LABS: BASOPHILS ABSOLUTE AUTO 0.03 K/mm3 (0.00-0.23); BASOPHILS PERCENT AUTO 0 % (0-2); EOSINOPHILS ABSOLUTE AUTO 0.02 K/mm3 (0.00-0.68); EOSINOPHILS PERCENT AUTO 0 % (0-6); Hemoglobin 14.5 g/dL (13.5-17.5); IMMATURE GRAN ABSOLUTE AUTO 0.08 K/mm3 (0.00-0.10); IMMATURE GRAN PERCENT AUTO 1 % (0-1); LYMPHOCYTES ABSOLUTE AUTO 0.76 K/mm3 (0.84-5.20); LYMPHOCYTES PERCENT AUTO 5 % (21-46); MONOCYTES ABSOLUTE AUTO 1.22 K/mm3 (0.16-1.47); MONOCYTES PERCENT AUTO 9 % (4-13); Mean Corpuscular HGB 35.3 pg (26.0-34.0); Mean Corpuscular HGB Conc 35.4 g/dL (31.5-36.5); Mean Corpuscular Volume 100 fL (80-100); Mean Platelet Volume 10.8 fL (9.1-12.4); NEUTROPHILS ABSOLUTE AUTO 12.15 K/mm3 (1.96-9.15); NEUTROPHILS PERCENT AUTO 85 % (41-73); Platelet Count 142 K/mm3 (150-400); RDW Coefficient Variation 14.1 % (11.7-14.2); RDW Standard Deviation 52.8 fL (35.1-46.3); Red Blood Cell Count 4.11 M/mm3 (4.30-5.90); White Blood Cell Count 14.26 K/mm3 (4.00-11.30)
[2023-01-21 05:48] LABS: Albumin, Blood 2.3 g/dL (3.4-5.0); Albumin/Globulin Ratio 0.8 (0.8-1.8); Bilirubin, Total 1.4 mg/dL (0.1-1.0); Bun/Creatinine Ratio 10.6 (12.0-20.0); Calcium, Blood 8.2 mg/dL (8.5-10.1); Creatinine, Blood 0.66 mg/dL (0.60-1.20); Magnesium, Blood 2.1 mg/dL (1.6-2.4); Potassium, Blood 3.9 mmol/L (3.5-5.5); Total Protein, Blood 5.3 g/dL (6.4-8.2)
--- NOTE | 2023-01-21 07:26 | NUR ---
Shift Summary Pt c/o severe abd pain t/o the night, medicated per emar, pain controlled to satisfaction. Tolerating clear liquid diet well. C/O new onset burning pain in feet bilateraly. Hips painful during ambulation d/t necrotic femoral heads. During chart review I noted prolonged QT interval in EKG from ED. Elevated HR t/o the night around 105. AOx4, independent in room.
--- NOTE | 2023-01-21 07:26 | NUR ---
ASSUMED CARE: PT AWAKE, TALKING TO STAFF. IVF RUNNING. STATES HE WANTS A SHOWER LATER TODAY. DENIES FURTHER NEEDS OR CONCERNS AT THIS TIME.
[2023-01-21 07:41] VITALS: BP 124/90
--- NOTE | 2023-01-21 13:06 | NUR ---
DR LIAO ROUNDED ON PT AND PT MADE HIM AWARE OF THE BURNING IN HIS FEET. DR STATED HE MAY ORDER LABS TO EVALUATE CAUSE WELL SOME POSSIBLE GABAPENTIN. RN MADE DR AWARE OF LONG QT ON EKG. DR ORDERED TELE FOR FURTHER EVALUATION.
[2023-01-21 15:15] VITALS: BP 119/91
--- NOTE | 2023-01-21 15:30 | NUR ---
MUSIC INDUSTRY INTERN CAME OUT OF ROOM STATING PT'S HR WAS IN 120S. RN ENTERED ROOM AND PERFORMED CIWA AND NOTED TREMORS THAT CAN BE FELT. SEE CIWA DOCUMENTATION. DENIES FURTHER SYMPTOMS. LIBRIUM ADMINSTERED. SENIOR SCRUM MASTER AWARE.
--- NOTE | 2023-01-21 19:14 | NUR ---
SHIFT SUMMARY: MEDICATED X1 FOR CIWA SCORE THAT AFFECTIVELY DECREASED HR. CURRENT HR IS 102 WITH QT INTERVAL OF 460. STATES HE FEELS MORE RELAXED AND COMFORTABLE. MEDICATING FOR PAIN Q4 THIS SHIFT. NIGHT RN AWARE TO DC IV FLUIDS WHEN THIS BAG IS COMPLETE AND TO ADVANCE DIET TOLERATED.
[2023-01-21 20:06] VITALS: BP 128/105
--- NOTE | 2023-01-22 04:12 | NUR ---
SHIFT SUMMARY PATIENT GIVEN LIBRIUM 50 MG X ONE FOR ALCOHOL WITHDRAWAL. AXO X4 AND INDEPENDENT IN ROOM. PIVS REMAIN INTACT. REPORTED ABDOMINAL PAIN AND IV DILAUDID 1 MG GIVEN PER EMAR. SCHEDULE GABAPENTIN 100 MG GIVEN FOR FEET PAIN. TELE MONITOR REPORTS ST 107. DENIES CHEST PAIN, SOB, AND N/V. VSS/AFEBRILE. CALL LIGHT IN REACH. BED IN LOWEST POSITION. WILL CONTINUE TO MONITOR UNTIL DAY SHIFT NURSE ASSUMES CARE.
[2023-01-22 06:15] LABS: Albumin/Globulin Ratio 0.6 (0.8-1.8); Bilirubin, Total 1.4 mg/dL (0.1-1.0); Bun/Creatinine Ratio 13.9 (12.0-20.0); Calcium, Blood 7.9 mg/dL (8.5-10.1); Creatinine, Blood 0.58 mg/dL (0.60-1.20); Globulin, Blood 3.3 g/dL (2.2-4.0); Potassium, Blood 3.9 mmol/L (3.5-5.5); Total Protein, Blood 5.3 g/dL (6.4-8.2)
[2023-01-22 08:14] VITALS: BP 143/106
[2023-01-22 10:34] VITALS: BP 136/103
--- NOTE | 2023-01-22 13:28 | NUR ---
PT REPORTS VOMITING AFTER LUNCH
--- NOTE | 2023-01-22 15:30 | NUR ---
DIASTOLIC HTN REPORTED TO DR. LIAO-PLAN TO MEDICATE W/ PO ATIVAN NEEDED FOR ANXIETY
--- NOTE | 2023-01-22 17:33 | NUR ---
SHIFT SUMMARY PT A&OX4 AND IN PLEASENT MOOD T/O SHIFT. IN TO SEE PT T/O SHIFT. PT REPORTS VOMITING LUNCH, PLAN TO ATTEMPT FL DINNER ADVANCE TOLERATING. AMB IND/SBA IN ROOM. TELE IN PLACE. HTN NOTED AND REPORTED TO DR. SALDANA MEDICATED PER EMAR. CALL LIGHT W/IN REACH.
[2023-01-22 19:05] VITALS: BP 148/106
[2023-01-23 04:05] VITALS: BP 149/110
--- NOTE | 2023-01-23 04:23 | NUR ---
SHIFT SUMMARY PATIENT HAD NO ACUTE CHANGES. AXOX 4 AND INDEPENDENT IN ROOM. CIWA SCORE: FOUR. REPORTED ABDOMINAL PAIN X TWO AND OXYCODONE 5 MG GIVENE PRN. SEROQUEL 50 MG GIVEN FOR INSOMNIA. DENIES CHEST PAIN, SOB, AND N/V. VSS/AFEBRILE. PIVS REMAIN INTACT. TELE MONITOR NSR 83. CALL LIGHT IN REACH. BED IN LOWEST POSITION. WILL CONTINUE TO MONITOR UNTIL DAY SHIFT NURSE ASSUMES CARE.
[2023-01-23 05:21] LABS: BASOPHILS ABSOLUTE AUTO 0.02 K/mm3 (0.00-0.23); BASOPHILS PERCENT AUTO 0 % (0-2); EOSINOPHILS PERCENT AUTO 1 % (0-6); Hematocrit 41.2 % (37.0-53.0); Hemoglobin 14.1 g/dL (13.5-17.5); IMMATURE GRAN ABSOLUTE AUTO 0.02 K/mm3 (0.00-0.10); IMMATURE GRAN PERCENT AUTO 0 % (0-1); LYMPHOCYTES ABSOLUTE AUTO 1.28 K/mm3 (0.84-5.20); LYMPHOCYTES PERCENT AUTO 18 % (21-46); MONOCYTES ABSOLUTE AUTO 1.11 K/mm3 (0.16-1.47); MONOCYTES PERCENT AUTO 16 % (4-13); Mean Corpuscular HGB 35.3 pg (26.0-34.0); Mean Corpuscular HGB Conc 34.2 g/dL (31.5-36.5); Mean Corpuscular Volume 103 fL (80-100); Mean Platelet Volume 10.5 fL (9.1-12.4); NEUTROPHILS ABSOLUTE AUTO 4.41 K/mm3 (1.96-9.15); NEUTROPHILS PERCENT AUTO 64 % (41-73); Platelet Count 165 K/mm3 (150-400); RDW Coefficient Variation 14.2 % (11.7-14.2); RDW Standard Deviation 54.4 fL (35.1-46.3); White Blood Cell Count 6.94 K/mm3 (4.00-11.30)
[2023-01-23 05:59] LABS: Albumin, Blood 2.1 g/dL (3.4-5.0); Albumin/Globulin Ratio 0.6 (0.8-1.8); Bun/Creatinine Ratio 13.5 (12.0-20.0); Calcium, Blood 8.8 mg/dL (8.5-10.1); Creatinine, Blood 0.74 mg/dL (0.60-1.20); Globulin, Blood 3.5 g/dL (2.2-4.0); Potassium, Blood 4.1 mmol/L (3.5-5.5); Total Protein, Blood 5.6 g/dL (6.4-8.2)
[2023-01-23 07:35] VITALS: BP 126/96
[2023-01-23] MEDS ORDERED: FOLI1 PO (11:57)
[2023-01-23] MEDS ORDERED: NYSTATIN15 GM TOP (11:58)
[2023-01-23] MEDS ORDERED: B-1100 M1 PO (11:58)
[2023-01-23] MEDS ORDERED: OXYC5 PO (11:58)
[2023-01-23] MEDS ORDERED: OMEP20ER PO (12:00)
[2023-01-23] MEDS ORDERED: CHLO25 PO (12:00)
--- NOTE | 2023-01-23 14:32 | NUR ---
SHIFT SUMMARY Patient doing well this shift, c/o mild abd pain. No nausea & vomting, advanced diet, tolerating regular foods. No s/sx ETOH withdrawal observed, no PRNs needed. Patient ready for discharge, gave Rx for oxycodone and librium. patient left unit at 1345.
[2023-01-29 22:09] LABS: 25-HYDROXY, VITAMIN D 8.3 ng/mL (.); 25-HYDROXY, VITAMIN D-2 <1.0 ng/mL (.); 25-HYDROXY, VITAMIN D-3 8.2 ng/mL (.)
== END 2023-01-23 14:39 | disposition home or self-care (01) | DRG 439 ==
LOC: ER 21:13 → MEDS 21:14 → ENPENDDIS 01-23 10:20 → MEDS 01-23 14:39
PROVIDERS: Internal Medicine; Student in an Organized Health Care Education/Training Program; ADMIT Internal Medicine
PROC: HZ2ZZZZ Detoxification Services for Substance Abuse Treatment (ICD-10-PCS; principal; 2023-01-20)
DX: K85.20 Alcohol induced acute pancreatitis without necrosis or infection (principal); E87.1 Hypo-osmolality and hyponatremia; M87.851 Other osteonecrosis, right femur; M87.852 Other osteonecrosis, left femur; F10.20 Alcohol dependence, uncomplicated; K29.00 Acute gastritis without bleeding; I10 Essential (primary) hypertension; F17.210 Nicotine dependence, cigarettes, uncomplicated; K70.10 Alcoholic hepatitis without ascites; E87.8 Other disorders of electrolyte and fluid balance, not elsewhere classified; E87.6 Hypokalemia; E53.8 Deficiency of other specified B group vitamins; G62.9 Polyneuropathy, unspecified; Y90.0 Blood alcohol level of less than 20 mg/100 ml; Z71.41 Alcohol abuse counseling and surveillance of alcoholic; Z79.899 Other long term (current) drug therapy
CPT/HCPCS: 36415; 74177; 80053; 82607; 82746; 83690; 83735; 83880; 84484; 85025; 85610; 93005; 93010; 96365-59; 96368; 96375; 96376; 99285-25; A9270; C9113; G0378; G0480; J0360; J1170; J1650; J1885; J2405; J3010; J3411; J3475; J3480; J7030; J7050; J7120; Q9967

== ENCOUNTER 2023-08-10 21:46 | Inpatient (IN) | payer BC ==
[~2023-08-10] VITALS: Ht 177.8 cm; Wt 70.6 kg
[~2023-08-10 21:46] MED LIST changes: +B-1100 M1 PO; +CHLO25 PO; +FOLI1 PO; +NYSTATIN15 GM TOP; +OMEP20ER PO; +OXYC5 PO
[2023-08-10 22:42] LABS: BASOPHILS ABSOLUTE AUTO 0.06 K/mm3 (0.00-0.23); BASOPHILS PERCENT AUTO 0 % (0-2); EOSINOPHILS ABSOLUTE AUTO 0.11 K/mm3 (0.00-0.68); EOSINOPHILS PERCENT AUTO 1 % (0-6); Hemoglobin 15.1 g/dL (13.5-17.5); IMMATURE GRAN ABSOLUTE AUTO 0.05 K/mm3 (0.00-0.10); IMMATURE GRAN PERCENT AUTO 0 % (0-1); LYMPHOCYTES ABSOLUTE AUTO 1.46 K/mm3 (0.84-5.20); LYMPHOCYTES PERCENT AUTO 11 % (21-46); MONOCYTES ABSOLUTE AUTO 1.33 K/mm3 (0.16-1.47); MONOCYTES PERCENT AUTO 10 % (4-13); Mean Corpuscular HGB 36.8 pg (26.0-34.0); Mean Corpuscular HGB Conc 36.8 g/dL (31.5-36.5); Mean Corpuscular Volume 100 fL (80-100); NEUTROPHILS ABSOLUTE AUTO 10.43 K/mm3 (1.96-9.15); NEUTROPHILS PERCENT AUTO 78 % (41-73); Platelet Count 151 K/mm3 (150-400); RDW Coefficient Variation 12.4 % (11.7-14.2); White Blood Cell Count 13.44 K/mm3 (4.00-11.30)
[2023-08-10 22:47] LABS: Base Excess Venous -0.8 mmol/L; Bicarbonate Venous 23.1 mmol/L (24.0-30.0); PCO2 Venous 41.9 mmHg (38-42); pH Blood Venous 7.37 (7.34-7.37)
[2023-08-10 22:50] LABS: Source, Urine Clean Catch
[2023-08-10 22:53] LABS: Blood, Urine 1+ (Neg); Glucose Qualitative, Urine Neg (Neg); Ketones, Urine Neg (Neg); Leukocyte Esterase, Urine 1+ (Neg); Nitrite, Urine Pos (Neg); Protein, Urine 2+ (Neg); Specific Gravity, Urine 1.015 (1.003-1.022); Urobilinogen, Urine 3+ (Normal)
[2023-08-10 23:08] LABS: Bilirubin, Urine 2+ (Neg)
[2023-08-10 23:09] LABS: Appearance, Urine Clear (Clear); Color, Urine Amber (P-Yellow)
[2023-08-10 23:10] LABS: Bacteria Few /hpf; Red Blood Cells, Urine 0-2 /hpf (0-2); Squamous Epithelial Cells Not Seen /hpf (Few); White Blood Cells, Urine 0-2 /hpf (0-5)
[2023-08-10 23:14] LABS: Magnesium, Blood 1.7 mg/dL (1.6-2.4)
[2023-08-10 23:19] LABS: Albumin, Blood 2.5 g/dL (3.4-5.0); Albumin/Globulin Ratio 0.5 (0.8-1.8); Bilirubin, Total 5.7 mg/dL (0.1-1.0); Bun/Creatinine Ratio 13.1 (12.0-20.0); Calcium, Blood 8.2 mg/dL (8.5-10.1); Creatinine, Blood 0.84 mg/dL (0.60-1.20); Globulin, Blood 4.7 g/dL (2.2-4.0); Phosphorus, Blood 2.1 mg/dL (2.5-4.9); Potassium, Blood 3.1 mmol/L (3.5-5.5); Total Protein, Blood 7.2 g/dL (6.4-8.2)
[2023-08-11 01:07] LABS: International Normalized Ratio 1.25
[2023-08-11 02:43] VITALS: BP 124/99
[2023-08-11 03:51] LABS: BASOPHILS ABSOLUTE AUTO 0.04 K/mm3 (0.00-0.23); BASOPHILS PERCENT AUTO 0 % (0-2); EOSINOPHILS ABSOLUTE AUTO 0.07 K/mm3 (0.00-0.68); EOSINOPHILS PERCENT AUTO 1 % (0-6); Hematocrit 37.6 % (37.0-53.0); Hemoglobin 14.1 g/dL (13.5-17.5); IMMATURE GRAN ABSOLUTE AUTO 0.03 K/mm3 (0.00-0.10); IMMATURE GRAN PERCENT AUTO 0 % (0-1); LYMPHOCYTES ABSOLUTE AUTO 1.02 K/mm3 (0.84-5.20); LYMPHOCYTES PERCENT AUTO 11 % (21-46); MONOCYTES ABSOLUTE AUTO 0.76 K/mm3 (0.16-1.47); MONOCYTES PERCENT AUTO 8 % (4-13); Mean Corpuscular HGB 37.2 pg (26.0-34.0); Mean Corpuscular HGB Conc 37.5 g/dL (31.5-36.5); Mean Corpuscular Volume 99 fL (80-100); Mean Platelet Volume 10.7 fL (9.1-12.4); NEUTROPHILS ABSOLUTE AUTO 7.16 K/mm3 (1.96-9.15); NEUTROPHILS PERCENT AUTO 79 % (41-73); Platelet Count 133 K/mm3 (150-400); RDW Coefficient Variation 12.4 % (11.7-14.2); RDW Standard Deviation 45.1 fL (35.1-46.3); Red Blood Cell Count 3.79 M/mm3 (4.30-5.90); White Blood Cell Count 9.08 K/mm3 (4.00-11.30)
[2023-08-11 04:26] LABS: Albumin, Blood 2.3 g/dL (3.4-5.0); Anion Gap 9 mmol/L (6-16); Blood Urea Nitrogen 10 mg/dL (8-24); Bun/Creatinine Ratio 12.7 (12.0-20.0); CO2, Blood 27 mmol/L (21-32); Calcium, Blood 7.7 mg/dL (8.5-10.1); Chloride, Blood 83 mmol/L (98-108); Creatinine, Blood 0.79 mg/dL (0.60-1.20); Glomerular Filtration Rate 106 (60-); Glucose, Blood 121 mg/dL (70-99); Phosphorus, Blood 2.3 mg/dL (2.5-4.9); Potassium, Blood 3.2 mmol/L (3.5-5.5); Sodium, Blood 119 mmol/L (136-145)
[2023-08-11 04:30] LABS: Albumin, Blood 2.3 g/dL (3.4-5.0); Albumin/Globulin Ratio 0.5 (0.8-1.8); Bilirubin, Total 4.9 mg/dL (0.1-1.0); Bun/Creatinine Ratio 12.7 (12.0-20.0); Calcium, Blood 7.7 mg/dL (8.5-10.1); Creatinine, Blood 0.79 mg/dL (0.60-1.20); Globulin, Blood 4.2 g/dL (2.2-4.0); Potassium, Blood 3.2 mmol/L (3.5-5.5); Total Protein, Blood 6.5 g/dL (6.4-8.2)
--- NOTE | 2023-08-11 07:23 | NUR ---
ASSUMPTION OF CARE/SHIFT SUMMARY PT ARRIVED TO PCU AT 0215, REPORT FROM ED RN. PT ARRIVED VIA ED ANYI A&O X4. PT IS INTERACTIVE AND RESPONDING APPROPRIATELY TO QUESTIONS, COOPERATIVE WITH CARE. VSS AT THIS TIME; 124/99, HR ST 107, AFEBRILE, ON RA SPO2 97% AND RR WNL. PT DENIES SOB, CP/PRESSURE, DIZZINESS OR LIGHTHEADNESS. PT DENIES N/V/D. HOWEVER PT DOES REPORT HAVING "BLACK TARRY STOOLS AND SOME DISLA-ERMELINDA COLORED" STOOLS. STATES THAT HIS LAST BLACK, TARRY BM WAS TODAY BEFORE 'I CAME HERE". PT DOES REPORT ABD TENDERNESS/PAIN, ABD IS MODERATLEY DISTENDED. PLAN FOR PARACENTESIS TODAY, BS PRESENT BUT HYPOACTIVE. LS COARSE AND RHONCHI T/O. PT DOES REPORT HAVING PRODUCTIVE COUGH, FOR "WHILE" WITH WHITE SPUTUM PRODUCTION, DENIES BLOOD. NO EDEMA PRESENT. PT HAS OCHOA CATHETER IN PLACE AND DRAINING DARK ORANGE/JESICA URINE WITH 400 MLS OUT THIS SHIFT. NO ACUTE CHANGES SINCE TRANSFER. PT IS RESTING, HAD A SMALL SNACK AND WAS ABLE TO TOLERATE THIS WELL.PT ORIENTED TO ROOM AND CALL LIGHT. WILL UPDATE ONCOMING RN
[2023-08-11 07:30] VITALS: BP 109/82
[2023-08-11 11:01] VITALS: BP 109/89
[2023-08-11 12:49] LABS: Bun/Creatinine Ratio 13.6 (12.0-20.0); Creatinine, Blood 0.74 mg/dL (0.60-1.20); Potassium, Blood 3.7 mmol/L (3.5-5.5)
--- NOTE | 2023-08-11 13:58 | NUR ---
UPDATE PT DOWN TO IMAGING FOR PARACENTISIS AT THIS TIME, VIA WHEELCHAIR.
[2023-08-11 14:49] VITALS: BP 117/91
[2023-08-11 14:51] LABS: Automated BF WBC Count 0.049 K/mm3 (0-999)
[2023-08-11 14:56] LABS: Body Fluid WBC Count 49 /mm3 (0-999)
--- NOTE | 2023-08-11 15:11 | NUR ---
UPDATE PT BACK FROM PARACENTISIS AT THIS TIME. PER REPORT, REMOVED 4.7 LITERS. SAMPLES SENT TO LAB. PT RESTING IN ROOM. VSS. CALL LIGHT IN REACH.
[2023-08-11 15:15] LABS: Albumin, Body Fluid 0.2 g/dL; Glucose, Body Fluid 121 mg/dL; Lactate Dehydrogenase, Body Fl 30 U/L; Protein, Body Fluid 0.5 g/dL; Triglycerides, Body Fluid 37 mg/dL
[2023-08-11 15:20] LABS: RBC Count, Body Fluid 66 /mm3 (0-0)
[2023-08-11 15:21] LABS: Appearance, Body Fluid Hazy (Clear); Color, Body Fluid Yellow (None-Yellow)
[2023-08-11 15:41] LABS: Total Cell Count, Body Fluid 100
--- NOTE | 2023-08-11 18:41 | NUR ---
SHIFT SUMMARY PT ALERT, ORIENTED TO SELF, PLACE, SITUATION. DISORIENTED TO DATE. CIWAS CURRENTLY 3. SP02>90% ON RA, LUNGS COARSE. COUGHING UP WHITE THICK SPUTUM FREQUENTLY. TELEMETRY SHOWS SINUS TACH, HR MOSTLY 100'S. PT VOMITTING TWO DIFFERENT TIMES THIS SHIFT, ZOFRAN GIVEN PER EMAR X1. OCHOA CATHETER REMOVED, USED URINAL TO VOID. UP TO BSC TO ATTEMPT A BM. ULTRASOUND IN ROOM THIS AM. PT DOWN FOR PARACENTISIS THIS AFTERNOON, SEE PREVIOUS NOTES. ALBUMIN INFUSING PER EMAR. PT STATES HE SMOKES 2 PACKS PER DAY. CALL PLACED TO MD RAMOS. MD RAMOS W/ ORDERS FOR NICOTINE PATCH. IN ROOM MOST OF DAY, GAVE PT BED BATH. CALL LIGHT IN REACH. BED ALARM ON.
[2023-08-11 20:12] VITALS: BP 110/83
[2023-08-11 23:00] VITALS: BP 110/84
[2023-08-12 03:24] VITALS: BP 100/76
[2023-08-12 04:02] LABS: BASOPHILS ABSOLUTE AUTO 0.06 K/mm3 (0.00-0.23); BASOPHILS PERCENT AUTO 1 % (0-2); EOSINOPHILS ABSOLUTE AUTO 0.08 K/mm3 (0.00-0.68); EOSINOPHILS PERCENT AUTO 1 % (0-6); Hematocrit 31.7 % (37.0-53.0); Hemoglobin 11.8 g/dL (13.5-17.5); IMMATURE GRAN ABSOLUTE AUTO 0.02 K/mm3 (0.00-0.10); IMMATURE GRAN PERCENT AUTO 0 % (0-1); LYMPHOCYTES ABSOLUTE AUTO 1.17 K/mm3 (0.84-5.20); LYMPHOCYTES PERCENT AUTO 18 % (21-46); MONOCYTES ABSOLUTE AUTO 0.99 K/mm3 (0.16-1.47); MONOCYTES PERCENT AUTO 15 % (4-13); Mean Corpuscular HGB 37.2 pg (26.0-34.0); Mean Corpuscular HGB Conc 37.2 g/dL (31.5-36.5); Mean Corpuscular Volume 100 fL (80-100); NEUTROPHILS PERCENT AUTO 65 % (41-73); Platelet Count 78 K/mm3 (150-400); RDW Coefficient Variation 13.1 % (11.7-14.2); RDW Standard Deviation 47.9 fL (35.1-46.3); Red Blood Cell Count 3.17 M/mm3 (4.30-5.90); White Blood Cell Count 6.52 K/mm3 (4.00-11.30)
[2023-08-12 04:18] LABS: Albumin, Blood 2.5 g/dL (3.4-5.0); Albumin/Globulin Ratio 0.8 (0.8-1.8); Bilirubin, Total 5.7 mg/dL (0.1-1.0); Bun/Creatinine Ratio 11.2 (12.0-20.0); Calcium, Blood 8.1 mg/dL (8.5-10.1); Creatinine, Blood 0.71 mg/dL (0.60-1.20); Globulin, Blood 3.1 g/dL (2.2-4.0); Potassium, Blood 3.6 mmol/L (3.5-5.5); Total Protein, Blood 5.6 g/dL (6.4-8.2)
--- NOTE | 2023-08-12 05:08 | NUR ---
END OF SHIFT NOTE: PT WAS MOVED FROM PCU 15 TO PCU 8 AT START OF SHIFT D/T ETOH WITHDRAWAL. PT REMAINS ALERT, ORIENTED X3-4, NOT ALWAYS ORIENTED TO DATE. HR 90-100'S, SINUS/SINUS TACH ON TELE. PT DENIES CHEST PAIN/PRESSURE. SBP 100-110'S W/ MAP >65. SPO2 >95% ON RA. AFEBRILE. CIWA 2-6 OVERNIGHT. NO C/O NAUSEA OR VOMITING. SEIZURE PRECAUTIONS IN PLACE. CONDOM CATH PLACED PER PT REQUEST FOR COMFORT D/T URINARY FREQUENCY & URGENCY. NO BM'S. NICOTINE PATCH IN PLACE ON L DELTOID FOR NICOTINE REPLACEMENT. PT ATTEMPTED TO CLIMB OOB W/O ASSISTANCE, BED ALARM REMAINS ON FOR PT SAFETY AND FALL PREVENTION. NO OTHER NEEDS AT THIS TIME. CALL LIGHT WITHIN REACH, BED IN LOWEST POSITION. WILL REPORT TO ONCOMING RN.
[2023-08-12 07:48] VITALS: BP 111/75
[2023-08-12 11:53] VITALS: BP 100/89
[2023-08-12 16:02] VITALS: BP 96/73
[2023-08-12 16:45] LABS: HEPATITIS A ANTIBODY, IGM Negative (Negative); HEPATITIS B CORE ANTIBODY, IGM Negative (Negative); HEPATITIS B SURFACE ANTIGEN Negative (Negative); HEPATITIS C AB CIA INTERP Negative (Negative); HEPATITIS C ANTIBODY CIA INDEX 0.18 IV
--- NOTE | 2023-08-12 18:04 | NUR ---
PT SUMMARY: PT HAS BEEN PLEASANT AND COOPERATIVE FOR THE SHIFT ALERT AND ORIENTED X3, ABLE TO MAKE NEEDS KNOWN, CALLS APPROPRIATELY IMPULSIVE AT TIMES. CIWA 3-6, DENIES NEED FOR MEDICATION YET. PT REQUESTED PAIN MEDICINE WITH PAIN ALL OVER 12/31, PT REPORTED HX OF "OSTEONECROSIS" ON HIS HIP THAT CAUSES PAIN. VITALS HAS BEEN STABLE. PT INCONTINENT OF URINE DUE TO URGENCY, REFUSED TO HAVE CONDOM CATH REPLACED GOT ACCIDNETALLY PULLED OFF TWICE THIS MORNING. USES URINAL FOR VOIDING. 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 PT EDUCATED ABOUT QUITTING DRINKING AND PT WAS AGREEABLE. NICOTINE PATCH IN PLACE. WAS IN THE ROOM MOST OF THE SHIFT WAS GIVEN UPDATE REGARDING PT'S STATUS. PT NOW RESTING IN BED CALL LIGHTS IN REACH WILL REPORT TO ONCOMING SHIFT
[2023-08-12 20:25] VITALS: BP 97/77
[2023-08-12 23:48] VITALS: BP 94/73
[2023-08-13 03:51] VITALS: BP 95/81
[2023-08-13 04:14] LABS: Hematocrit 34.8 % (37.0-53.0); Hemoglobin 12.4 g/dL (13.5-17.5); Mean Corpuscular HGB 36.8 pg (26.0-34.0); Mean Corpuscular HGB Conc 35.6 g/dL (31.5-36.5); Mean Corpuscular Volume 103 fL (80-100); Mean Platelet Volume 11.4 fL (9.1-12.4); Platelet Count 88 K/mm3 (150-400); RDW Coefficient Variation 13.9 % (11.7-14.2); RDW Standard Deviation 53.1 fL (35.1-46.3); Red Blood Cell Count 3.37 M/mm3 (4.30-5.90); White Blood Cell Count 8.01 K/mm3 (4.00-11.30)
[2023-08-13 04:30] LABS: Albumin, Blood 2.4 g/dL (3.4-5.0); Albumin/Globulin Ratio 0.7 (0.8-1.8); Bilirubin, Total 4.4 mg/dL (0.1-1.0); Bun/Creatinine Ratio 12.7 (12.0-20.0); Creatinine, Blood 1.02 mg/dL (0.60-1.20); Globulin, Blood 3.4 g/dL (2.2-4.0); Potassium, Blood 3.6 mmol/L (3.5-5.5); Total Protein, Blood 5.8 g/dL (6.4-8.2)
[2023-08-13 05:31] LABS: BASOPHILS ABSOLUTE MAN 0.08 K/mm3 (0.00-0.23); BASOPHILS PERCENT MAN 1 % (0-2); EOSINOPHILS ABSOLUTE MAN 0.32 K/mm3 (0.00-0.68); EOSINOPHILS PERCENT MAN 4 % (0-6); LYMPHOCYTES ABSOLUTE MAN 1.36 K/mm3 (0.84-5.20); LYMPHOCYTES PERCENT MAN 17 % (21-46); MONOCYTES ABSOLUTE MAN 1.36 K/mm3 (0.16-1.47); MONOCYTES PERCENT MAN 17 % (4-13); NEUTROPHILS ABSOLUTE MAN 4.88 K/mm3 (1.96-9.15); SEG NEUTROPHILS PERCENT MAN 61 % (41-73); TOTAL CELLS COUNTED 100
--- NOTE | 2023-08-13 06:34 | NUR ---
SHIFT SUMMARY PATIENT ALERT AND ORIENTED X3 AT START OF SHIFT WITH CIWA OF 1, WAS SBA WITH FWW TO THE RESTROOM. AT 2300 PATEINT SET HIS BED ALARM OFF, TOOK HIS TELE OFF AND WAS GATHERIG HIS THINGS WITH THE INTENT OF LEAVING AMA, PATIENT REPORTED BEING ANXIOUS AND AGITATED BECAUSE HE DIDN'T WANT TO BE IN THE HOSPITAL ON [facility]. EDUCATED THE PATIENT ON THE DATE AND WHY IT WAS IMPORTANT FOR HIM TO STAY IN THE HOSPITAL, PATIENT AGREED TO STAY, MEDICATED PATIENT FOR CIWA OF 12. PATIENT ATTEMPTED TO LEAVE AMA AGAIN AT 0300, THIS TIME PULLING OUT HIS IV WELL, PATIENT REPORTED BEING FRUSTRATED THAT HE HASN'T BEEN ABLE TO SLEEP IN THREE DAYS, PATIENT HALLUCINATING ABOUT A CAT IN THE CORNER, SECURITY CALLED FOR STAND BY. EDUCATED THE PATIENT THAT HE IS WITHDRAWING FROM ALCOHOL AND IF HE GOES HOME HE COULD HAVE A SEIZURE. PATIENT AGAIN AGREED TO STAY. THIS RN PLACED A NEW IV AND MEDICATED THE PATIENT FOR A CIWA OF 17. PATIENT REQUIRED BEING MEDICATED TWICE MORE FOR CIWA'S >15. PATIENT IS NOW CURRENTLY SLEEPING. SPO2 >90% ON ROOM AIR. BLOOD PRESSURE IN THE 90'S WITH MAP >65. DENIES CHEST PAIN AND SHORTNESS OF BREATH. WILL CONTINUE TO MONITOR. CALL LIGHT WITHIN REACH.
[2023-08-13 07:53] VITALS: BP 92/78
--- NOTE | 2023-08-13 10:48 | NUR ---
CARE ASSUMPTION this rn assumed care at 0700. vital signs stable. tele sinus tach 102. patient is nonresponsive. patient will move arms with a sternum rub, but will not open eyes or follow commands. chad in room and is aware. orders placed, see orders. ciwa 0-1, unable to fully assess patient mentation due to patient current mentation level. see shift assessment for further detials. plan of care is up to date at this time.
[2023-08-13 11:41] VITALS: BP 90/73
[2023-08-13 15:43] VITALS: BP 101/84
--- NOTE | 2023-08-13 18:51 | NUR ---
SHIFT SUMMARY patient ciwa ranges from 0-16. patient when not bothered ciwa has been 0-3. patient when needing to reposition or doing medications patient becomes agitated, cursing at staff, swinging at staff. patient at times can be redirected. patient kept trying to pee throughout the shift with mininal output. straight cath done and 300 measure and some unmeasure from bladder. attempted to do second jenny, but unable to adminster it fully, medication was leaking out due to patient thrashing in bed and clinching bottom. bed alarm is on. patient does not use call light. patient intermittent alertness, but does not know where he is at, staff, place or situation. this rn provided education on where patient is at and current situation. otherwise no changes. plan of care is up to date. vitals remain stable. tele sinus
[2023-08-13 21:04] VITALS: BP 95/83
[2023-08-14 00:22] VITALS: BP 94/78
[2023-08-14 03:52] VITALS: BP 94/75
[2023-08-14 04:01] LABS: BASOPHILS PERCENT AUTO 1 % (0-2); EOSINOPHILS ABSOLUTE AUTO 0.17 K/mm3 (0.00-0.68); EOSINOPHILS PERCENT AUTO 2 % (0-6); Hematocrit 34.6 % (37.0-53.0); Hemoglobin 12.4 g/dL (13.5-17.5); IMMATURE GRAN ABSOLUTE AUTO 0.02 K/mm3 (0.00-0.10); IMMATURE GRAN PERCENT AUTO 0 % (0-1); LYMPHOCYTES ABSOLUTE AUTO 1.26 K/mm3 (0.84-5.20); LYMPHOCYTES PERCENT AUTO 17 % (21-46); MONOCYTES ABSOLUTE AUTO 1.23 K/mm3 (0.16-1.47); MONOCYTES PERCENT AUTO 16 % (4-13); Mean Corpuscular HGB 37.6 pg (26.0-34.0); Mean Corpuscular HGB Conc 35.8 g/dL (31.5-36.5); Mean Corpuscular Volume 105 fL (80-100); Mean Platelet Volume 11.1 fL (9.1-12.4); NEUTROPHILS ABSOLUTE AUTO 4.78 K/mm3 (1.96-9.15); NEUTROPHILS PERCENT AUTO 63 % (41-73); Platelet Count 91 K/mm3 (150-400); RDW Coefficient Variation 14.4 % (11.7-14.2); RDW Standard Deviation 55.6 fL (35.1-46.3); White Blood Cell Count 7.56 K/mm3 (4.00-11.30)
[2023-08-14 04:21] LABS: Bun/Creatinine Ratio 15.7 (12.0-20.0); Calcium, Blood 8.3 mg/dL (8.5-10.1); Creatinine, Blood 1.02 mg/dL (0.60-1.20); Potassium, Blood 4.3 mmol/L (3.5-5.5)
--- NOTE | 2023-08-14 06:50 | NUR ---
SHIFT SUMMARY PATIENT CONTINUED TO BE LETHARGIC OVERNIGHT, RESPONSIVE TO PHYSICAL STIMULUS. WAS MORE COOPERATIVE WITH CARE, WAS ABLE TO PERFORM LACTULOSE ENEMAS WITH MINIMAL RESISTANCE. CIWAS STABLE OVERNIGHT AND PATIENT DID NOT REQUIRE PRN MEDICATION. PATIENT DID NOT URINATE OVERNIGHT, CONDUCTED A STRAIGHT CATH ON THE PATIENT AND ONLY OBTAINED 125 ML OF DARK, TEA COLORED URINE. NOTIFIED DR PECK OF THIS AND THAT THE PATIENT HAD NOT BEEN ON FLUIDS AND THAT HE HAD NO ORAL INTAKE YESTERDAY. DR PECK SAID TO GIVE THE PATIENT 1 LITER OF NS AT 225 ML/HR. BLOOD PRESSURE IN THE 90'S, MAP >65. WILL CONTINUE TO MONITOR. CALL LIGHT WITHIN REACH.
[2023-08-14 07:39] VITALS: BP 94/77
[2023-08-14 11:28] VITALS: BP 106/86
[2023-08-14 16:02] VITALS: BP 101/83
--- NOTE | 2023-08-14 17:40 | NUR ---
shift summary this rn assumed care at 0700. vital signs stable and have remained stable throughout the shift. patient at the begining of the shift was lethargic but respond to painful stimuli. patient around 11am become more awake wanting food. patient ate all of lunch and is awake and oriented to year, person, self, and place. patient asking why he is here and this rn educated. patient updated. the second half of shift from 1400 till current patient more sleepy, but will awake with verbal stimuli and follow commands. patient able to void using bedside urinal and had 200 output and urine was dark eldon and foul smell. patient reports no chest pain/pressure, shortness of breath or pain. see shift assessment for further detials. chad in to see patient this am. plan of care is up to date at this time.
[2023-08-14 21:26] VITALS: BP 97/85
[2023-08-15 00:03] VITALS: BP 97/70
[2023-08-15 04:23] LABS: BASOPHILS PERCENT AUTO 1 % (0-2); EOSINOPHILS ABSOLUTE AUTO 0.17 K/mm3 (0.00-0.68); EOSINOPHILS PERCENT AUTO 2 % (0-6); Hematocrit 33.8 % (37.0-53.0); Hemoglobin 12.4 g/dL (13.5-17.5); IMMATURE GRAN ABSOLUTE AUTO 0.02 K/mm3 (0.00-0.10); IMMATURE GRAN PERCENT AUTO 0 % (0-1); LYMPHOCYTES ABSOLUTE AUTO 1.49 K/mm3 (0.84-5.20); LYMPHOCYTES PERCENT AUTO 19 % (21-46); MONOCYTES ABSOLUTE AUTO 1.39 K/mm3 (0.16-1.47); MONOCYTES PERCENT AUTO 17 % (4-13); Mean Corpuscular HGB Conc 36.7 g/dL (31.5-36.5); Mean Corpuscular Volume 104 fL (80-100); Mean Platelet Volume 10.9 fL (9.1-12.4); NEUTROPHILS ABSOLUTE AUTO 4.89 K/mm3 (1.96-9.15); NEUTROPHILS PERCENT AUTO 61 % (41-73); Platelet Count 117 K/mm3 (150-400); RDW Coefficient Variation 14.9 % (11.7-14.2); Red Blood Cell Count 3.26 M/mm3 (4.30-5.90); White Blood Cell Count 8.06 K/mm3 (4.00-11.30)
[2023-08-15 04:38] LABS: Bun/Creatinine Ratio 19.4 (12.0-20.0); Calcium, Blood 8.2 mg/dL (8.5-10.1); Creatinine, Blood 1.03 mg/dL (0.60-1.20); Potassium, Blood 3.7 mmol/L (3.5-5.5)
[2023-08-15 04:53] VITALS: BP 93/73
--- NOTE | 2023-08-15 06:43 | NUR ---
SHIFT SUMMARY PATIENT ALERT AND ORIENTED X2-3. REQUIRING 2 PERSON ASSIST TO THE BEDSIDE COMMODE WHEN MORE ALERT. PATIENT WAS HAVING MULTIPLE LIQUID BOWEL MOVEMENTS AT THE BEGINNING OF SHIFT AND BECOMING AGITATED. LACTULOSE HELD, PATIENT MEDICATED FOR PAIN AND THEN HE SLEPT FOR THE REST OF THE NIGHT. DID NOT REQUIRE ANY MEDICATION FOR ALCOHOL WITHDRAWL HIS AGITATION WAS RESOLVED WITH DECREASING HIS PAIN AND MAKING HIM MORE COMFORTABLE. BLOOD PRESSURE STABLE IN THE 90'S WITH MAP >65. SPO2>90% ON ROOM AIR. DENIES CHEST PAIN AND SHORTNESS OF BREATH. WILL CONTINUE TO MONITOR. CALL LIGHT WITHIN REACH.
--- NOTE | 2023-08-15 07:46 | NUR ---
Bedside report from SANTOS Garcia. Reportedly the pt slept all night and required no medications for withdrawl symptoms. He appears to be sleeping at time of report. Lights in room are on, TV is on. HR noted 102, sinus tachycardia by bedside tele monitor.
[2023-08-15 07:53] VITALS: BP 99/73
--- NOTE | 2023-08-15 10:59 | NUR ---
Pt is sleeping, opens eyes and responds to conversation. He is very drowsy, and after he sat himself up and moved himself up in the bed, took his medications and drank some water while holding the cup himself, he fell back to sleep again.
--- NOTE | 2023-08-15 15:25 | NUR ---
Physical therapy was unable to work with the patient today due to his lethargy but also due to their caseload of evaluations. He was ambulatory, with gait belt and walker and maximum assistance from staff, to the bathroom where he had a BM liquid brown, and sat on the commode during a sponge bath given by ASHANTI. He walked again with assist to chair and sat in recliner where he quickly fell asleep. He is now back in bed after setting off chair alarm and getting up. He was helped by staff back to bed. Still very lethargic. When he was up and walking, his heart rate was 110s-129 BPM. He is very weak, does not have good insight into his own limitations, and is not using the call light. Appetite fairly good, ate 50% of lunch. Did stay awake in order to feed himself.
[2023-08-15 15:28] VITALS: BP 97/82
[2023-08-15 19:38] VITALS: BP 102/77
[2023-08-16 04:54] LABS: Albumin/Globulin Ratio 0.6 (0.8-1.8); Bilirubin, Direct 2.1 mg/dL (0.0-0.3); Bilirubin, Indirect 1.7 mg/dL (0.1-0.7); Bilirubin, Total 3.8 mg/dL (0.1-1.0); Bun/Creatinine Ratio 16.4 (12.0-20.0); Creatinine, Blood 1.1 mg/dL (0.60-1.20); Globulin, Blood 3.4 g/dL (2.2-4.0); Potassium, Blood 3.4 mmol/L (3.5-5.5); Total Protein, Blood 5.4 g/dL (6.4-8.2)
[2023-08-16 05:17] VITALS: BP 105/83
--- NOTE | 2023-08-16 06:11 | NUR ---
END OF SHIFT SUMMARY NO ACUTE EVENTS OVERNIGHT; HE WAS ABLE TO SLEEP A LOT OF THE NIGHT. PT IS ORIENTED X4 BUT DROWSY AND IRRITABLE NOT LIKING TO BE "BOTHERED". HE DOES NOT USE HIS CALL LIGHT WHEN HE IS TRYING TO GET OUT OF BED SO BED ALARM STAYED ON ALL NIGHT; CONT TO NEED GAIT BELT AND WALKER WHEN TRANSFERING R/T BALENCE. SPO2 >96% ON RA. HR WNL. SBP 100'S. LACTULOSE HELD D/T DIARRHEA AND AMMONIA BEING WNL; HE DID HAVE THREE BM'S T/O THE SHIFT. ABD CONT TO BE DISTENDED. SALINE LOCKED. WILL REPORT TO AM RN WHEN AVAILABLE.
[2023-08-16 09:23] VITALS: BP 109/82
[2023-08-16] MEDS ORDERED: CONSTULOSE10 GM/15 M PO (12:25)
[2023-08-16] MEDS ORDERED: Nicoderm Cq1 EAC1 TOP (12:26)
[2023-08-16 13:05] VITALS: BP 117/91
--- NOTE | 2023-08-16 13:43 | NUR ---
DISCHARGE SUMMARY: PT HAS BEEN CLEARED FOR DISCHARGE HOME. ALL IV ACCESS DC'd WNL. PT ASSISTED W/DRESSING AND TRANSFER TO W/C. PT'S SPOUSE TO ROOM, DC INSTRUCTIONS AND PAPERWORK HAVE BEEN PROVIDED. ALL QUESTIONS HAVE BEEN ANSWERED. PT ESCORTED FROM UNIT VIA W/C W/OUT INCIDENT.
== END 2023-08-16 13:39 | disposition home or self-care (01) | DRG 433 ==
LOC: ER 21:46 → PCU 08-11 00:53
PROVIDERS: Emergency Medicine; Family Medicine; ADMIT Student in an Organized Health Care Education/Training Program
PROC: HZ2ZZZZ Detoxification Services for Substance Abuse Treatment (ICD-10-PCS; principal; 2023-08-11)
PROC: 0W9G3ZZ Drainage of Peritoneal Cavity, Percutaneous Approach (ICD-10-PCS; 2023-08-11)
DX: K70.11 Alcoholic hepatitis with ascites (principal); E87.1 Hypo-osmolality and hyponatremia; E87.20 Acidosis, unspecified; F10.239 Alcohol dependence with withdrawal, unspecified; E87.6 Hypokalemia; D64.9 Anemia, unspecified; K76.82 Hepatic encephalopathy; D69.6 Thrombocytopenia, unspecified; I10 Essential (primary) hypertension; K70.31 Alcoholic cirrhosis of liver with ascites; K76.0 Fatty (change of) liver, not elsewhere classified; K63.89 Other specified diseases of intestine; K20.90 Esophagitis, unspecified without bleeding; K29.70 Gastritis, unspecified, without bleeding; F17.210 Nicotine dependence, cigarettes, uncomplicated; K52.9 Noninfective gastroenteritis and colitis, unspecified; Y90.6 Blood alcohol level of 120-199 mg/100 ml; R00.0 Tachycardia, unspecified; Z88.8 Allergy status to other drugs, medicaments and biological substances; Z79.891 Long term (current) use of opiate analgesic
CPT/HCPCS: 36415; 49083; 51702; 51798; 71045; 74177; 76705; 80048; 80053; 80069; 80074; 80076; 81001; 82042; 82140; 82533; 82803; 82945; 83605; 83615; 83690; 83735; 83930; 83935; 84100; 84157; 84295; 84300; 84443; 84478; 84484; 85025; 85379; 85610; 85730; 87040; 87070; 87075; 87086; 87205; 89051; 93005; 93010; 94760; 94762; 96361; 96365; 96367; 96375; 97116; 97162; 99285-25; A9270; C9113; J0696; J2060; J2405; J3370; J3411; J3480; J7030; J7040; J7050; P9047; Q9967

== ENCOUNTER 2023-08-20 09:32 | Emergency (ER) | payer BC ==
[~2023-08-20] VITALS: Ht 177.8 cm; Wt 77.1 kg
[~2023-08-20 09:32] MED LIST changes: +CONSTULOSE10 GM/15 M PO; +Nicoderm Cq1 EAC1 TOP
[2023-08-20 10:13] LABS: BASOPHILS ABSOLUTE AUTO 0.18 K/mm3 (0.00-0.23); BASOPHILS PERCENT AUTO 1 % (0-2); EOSINOPHILS ABSOLUTE AUTO 0.18 K/mm3 (0.00-0.68); EOSINOPHILS PERCENT AUTO 1 % (0-6); Hematocrit 38.2 % (37.0-53.0); Hemoglobin 13.5 g/dL (13.5-17.5); IMMATURE GRAN ABSOLUTE AUTO 0.06 K/mm3 (0.00-0.10); IMMATURE GRAN PERCENT AUTO 1 % (0-1); LYMPHOCYTES ABSOLUTE AUTO 2.09 K/mm3 (0.84-5.20); LYMPHOCYTES PERCENT AUTO 17 % (21-46); MONOCYTES ABSOLUTE AUTO 1.86 K/mm3 (0.16-1.47); MONOCYTES PERCENT AUTO 15 % (4-13); Mean Corpuscular HGB 38.1 pg (26.0-34.0); Mean Corpuscular HGB Conc 35.3 g/dL (31.5-36.5); Mean Corpuscular Volume 108 fL (80-100); Mean Platelet Volume 10.5 fL (9.1-12.4); NEUTROPHILS ABSOLUTE AUTO 8.17 K/mm3 (1.96-9.15); NEUTROPHILS PERCENT AUTO 65 % (41-73); Platelet Count 172 K/mm3 (150-400); RDW Coefficient Variation 15.9 % (11.7-14.2); RDW Standard Deviation 63.6 fL (35.1-46.3); Red Blood Cell Count 3.54 M/mm3 (4.30-5.90); White Blood Cell Count 12.54 K/mm3 (4.00-11.30)
[2023-08-20 10:27] LABS: Bicarbonate Venous 25.2 mmol/L (24.0-30.0); PCO2 Venous 44.3 mmHg (38-42)
[2023-08-20 10:34] LABS: Albumin, Blood 2.4 g/dL (3.4-5.0); Albumin/Globulin Ratio 0.6 (0.8-1.8); Bilirubin, Total 3.4 mg/dL (0.1-1.0); Bun/Creatinine Ratio 17.2 (12.0-20.0); Calcium, Blood 8.5 mg/dL (8.5-10.1); Creatinine, Blood 1.16 mg/dL (0.60-1.20); Globulin, Blood 4.2 g/dL (2.2-4.0); Magnesium, Blood 2.2 mg/dL (1.6-2.4); Potassium, Blood 3.9 mmol/L (3.5-5.5); Total Protein, Blood 6.6 g/dL (6.4-8.2)
[2023-08-20 10:47] LABS: International Normalized Ratio 1.13; Prothrombin Time Results 11.8 Sec (9.7-11.5)
[2023-08-20 15:31] LABS: Source, Urine Clean Catch
[2023-08-20 15:31] LABS: Body Fluid WBC Count 100 /mm3 (0-999); RBC Count, Body Fluid 35 /mm3 (0-0)
[2023-08-20 15:35] LABS: Appearance, Body Fluid Clear (Clear); Color, Body Fluid Yellow (None-Yellow)
[2023-08-20 15:35] LABS: Appearance, Urine Hazy (Clear); Blood, Urine 1+ (Neg); Glucose Qualitative, Urine Neg (Neg); Ketones, Urine 1+ (Neg); Leukocyte Esterase, Urine 1+ (Neg); Nitrite, Urine Pos (Neg); Protein, Urine 2+ (Neg); Urobilinogen, Urine 2+ (Normal)
[2023-08-20 15:48] LABS: Bilirubin, Urine 2+ (Neg); Color, Urine Amber (P-Yellow)
[2023-08-20 15:49] LABS: Squamous Epithelial Cells Rare /hpf (Few)
[2023-08-20 15:50] LABS: Bacteria Few /hpf
[2023-08-20 15:51] LABS: Mucus Light (0-Heavy)
[2023-08-20 15:59] LABS: Total Cell Count, Body Fluid 100
[2023-08-20 16:15] VITALS: BP 92/73
[2023-08-20] MEDS ORDERED: CEPH500 PO (16:27)
== END 2023-08-20 16:58 | disposition home or self-care (01) ==
LOC: ER 09:32
PROVIDERS: Student in an Organized Health Care Education/Training Program
DX: R18.8 Other ascites (principal); R14.0 Abdominal distension (gaseous); Z87.19 Personal history of other diseases of the digestive system; D72.829 Elevated white blood cell count, unspecified; R94.5 Abnormal results of liver function studies; F10.20 Alcohol dependence, uncomplicated; F17.210 Nicotine dependence, cigarettes, uncomplicated; I10 Essential (primary) hypertension; Z86.69 Personal history of other diseases of the nervous system and sense organs; Z79.899 Other long term (current) drug therapy; Z88.8 Allergy status to other drugs, medicaments and biological substances
CPT/HCPCS: 49083; 80053; 81001; 82140; 82803; 83735; 85025; 85610; 85730; 87070; 87075; 87086; 87205; 89051; 93005; 93010; 96360; 99284-25; A9270; J7030

== ENCOUNTER 2023-08-30 13:04 | Emergency (ER) | payer BC ==
[~2023-08-30] VITALS: Ht 177.8 cm; Wt 72.6 kg
[~2023-08-30 13:04] MED LIST changes: +CEPH500 PO
[2023-08-30 14:08] LABS: BASOPHILS ABSOLUTE AUTO 0.12 K/mm3 (0.00-0.23); BASOPHILS PERCENT AUTO 1 % (0-2); EOSINOPHILS ABSOLUTE AUTO 0.38 K/mm3 (0.00-0.68); EOSINOPHILS PERCENT AUTO 4 % (0-6); Hematocrit 33.9 % (37.0-53.0); Hemoglobin 11.4 g/dL (13.5-17.5); IMMATURE GRAN ABSOLUTE AUTO 0.03 K/mm3 (0.00-0.10); IMMATURE GRAN PERCENT AUTO 0 % (0-1); International Normalized Ratio 1.22; LYMPHOCYTES ABSOLUTE AUTO 1.79 K/mm3 (0.84-5.20); LYMPHOCYTES PERCENT AUTO 17 % (21-46); MONOCYTES ABSOLUTE AUTO 1.19 K/mm3 (0.16-1.47); MONOCYTES PERCENT AUTO 11 % (4-13); Mean Corpuscular HGB 37.9 pg (26.0-34.0); Mean Corpuscular HGB Conc 33.6 g/dL (31.5-36.5); Mean Corpuscular Volume 113 fL (80-100); Mean Platelet Volume 10.2 fL (9.1-12.4); NEUTROPHILS PERCENT AUTO 67 % (41-73); Platelet Count 191 K/mm3 (150-400); Prothrombin Time Results 12.7 Sec (9.7-11.5); RDW Coefficient Variation 14.5 % (11.7-14.2); RDW Standard Deviation 59.5 fL (35.1-46.3); Red Blood Cell Count 3.01 M/mm3 (4.30-5.90); White Blood Cell Count 10.61 K/mm3 (4.00-11.30)
[2023-08-30 14:17] LABS: Albumin, Blood 4.3 g/dL (3.4-5.0); Albumin/Globulin Ratio 1.4 (0.8-1.8); Bilirubin, Total 3.4 mg/dL (0.1-1.0); Bun/Creatinine Ratio 16.6 (12.0-20.0); Calcium, Blood 9.1 mg/dL (8.5-10.1); Creatinine, Blood 0.78 mg/dL (0.60-1.20); Globulin, Blood 3.1 g/dL (2.2-4.0); Potassium, Blood 3.6 mmol/L (3.5-5.5); Total Protein, Blood 7.4 g/dL (6.4-8.2)
[2023-08-30] MEDS ORDERED: OXAYDO5 M1 PO (15:17)
[2023-08-30 15:45] VITALS: BP 111/86
== END 2023-08-30 15:54 | disposition home or self-care (01) ==
LOC: ER 13:04
PROVIDERS: Physician Assistant
DX: T85.638A Leakage of other specified internal prosthetic devices, implants and grafts, initial encounter (principal); K70.11 Alcoholic hepatitis with ascites; K70.31 Alcoholic cirrhosis of liver with ascites; D63.8 Anemia in other chronic diseases classified elsewhere; I12.0 Hypertensive chronic kidney disease with stage 5 chronic kidney disease or end stage renal disease; N18.6 End stage renal disease; Z99.2 Dependence on renal dialysis; F10.231 Alcohol dependence with withdrawal delirium; D69.6 Thrombocytopenia, unspecified; K29.70 Gastritis, unspecified, without bleeding; Z87.19 Personal history of other diseases of the digestive system; Z79.899 Other long term (current) drug therapy; Y73.2 Prosthetic and other implants, materials and accessory gastroenterology and urology devices associated with adverse incidents; Z88.8 Allergy status to other drugs, medicaments and biological substances
CPT/HCPCS: 80053; 85025; 85610; 96374; 96376; 99284-25; J1170

== ENCOUNTER 2023-09-02 14:25 | Emergency (ER) | payer BC ==
[~2023-09-02] VITALS: Ht 172.7 cm; Wt 65.8 kg
[~2023-09-02 14:25] MED LIST changes: +OXAYDO5 M1 PO
[2023-09-02] MEDS ORDERED: MIDO5 PO (14:51)
[2023-09-02 15:30] LABS: BASOPHILS ABSOLUTE AUTO 0.16 K/mm3 (0.00-0.23); BASOPHILS PERCENT AUTO 1 % (0-2); EOSINOPHILS ABSOLUTE AUTO 0.45 K/mm3 (0.00-0.68); EOSINOPHILS PERCENT AUTO 3 % (0-6); Hematocrit 30.9 % (37.0-53.0); Hemoglobin 10.1 g/dL (13.5-17.5); IMMATURE GRAN ABSOLUTE AUTO 0.04 K/mm3 (0.00-0.10); IMMATURE GRAN PERCENT AUTO 0 % (0-1); LYMPHOCYTES ABSOLUTE AUTO 1.82 K/mm3 (0.84-5.20); LYMPHOCYTES PERCENT AUTO 14 % (21-46); MONOCYTES ABSOLUTE AUTO 1.39 K/mm3 (0.16-1.47); MONOCYTES PERCENT AUTO 11 % (4-13); Mean Corpuscular HGB 37.7 pg (26.0-34.0); Mean Corpuscular HGB Conc 32.7 g/dL (31.5-36.5); Mean Corpuscular Volume 115 fL (80-100); Mean Platelet Volume 10.2 fL (9.1-12.4); NEUTROPHILS ABSOLUTE AUTO 9.36 K/mm3 (1.96-9.15); NEUTROPHILS PERCENT AUTO 71 % (41-73); Platelet Count 167 K/mm3 (150-400); RDW Coefficient Variation 14.1 % (11.7-14.2); Red Blood Cell Count 2.68 M/mm3 (4.30-5.90); White Blood Cell Count 13.22 K/mm3 (4.00-11.30)
[2023-09-02 15:48] LABS: International Normalized Ratio 1.3; Prothrombin Time Results 13.4 Sec (9.7-11.5)
[2023-09-02 16:02] LABS: Albumin, Blood 3.6 g/dL (3.4-5.0); Albumin/Globulin Ratio 1.2 (0.8-1.8); Bilirubin, Total 2.5 mg/dL (0.1-1.0); Bun/Creatinine Ratio 7.2 (12.0-20.0); Calcium, Blood 8.5 mg/dL (8.5-10.1); Creatinine, Blood 2.08 mg/dL (0.60-1.20); Potassium, Blood 4.3 mmol/L (3.5-5.5); Total Protein, Blood 6.6 g/dL (6.4-8.2)
[2023-09-02 17:06] LABS: Source, Urine Voided
[2023-09-02 17:25] LABS: Appearance, Urine Hazy (Clear); Blood, Urine 1+ (Neg); Color, Urine Amber (P-Yellow); Glucose Qualitative, Urine Neg (Neg); Ketones, Urine 1+ (Neg); Leukocyte Esterase, Urine 1+ (Neg); Nitrite, Urine Pos (Neg); Protein, Urine 2+ (Neg); Specific Gravity, Urine 1.025 (1.003-1.022); Urobilinogen, Urine 1+ (Normal)
[2023-09-02 17:38] LABS: Bilirubin, Urine 1+ (Neg)
[2023-09-02 17:40] LABS: Amorphous Light (0-Heavy); Bacteria Mod /hpf; Squamous Epithelial Cells Rare /hpf (Few); Uric Acid Crystals Few /hpf
[2023-09-02 19:45] VITALS: BP 101/79
[2023-09-02] MEDS ORDERED: CEPH500 PO (19:50)
== END 2023-09-02 20:10 | disposition home or self-care (01) ==
LOC: ER 14:25
PROVIDERS: Emergency Medicine
DX: N39.0 Urinary tract infection, site not specified (principal); N17.9 Acute kidney failure, unspecified; I10 Essential (primary) hypertension; F17.210 Nicotine dependence, cigarettes, uncomplicated; Z88.8 Allergy status to other drugs, medicaments and biological substances
CPT/HCPCS: 51702; 70450; 80053; 81001; 82140; 85025; 85610; 85730; 96365-59; 99284-25; J0696; J7030